=== PATIENT | female | born 1985 | race Caucasian/White ===

== ENCOUNTER 2025-05-26 18:21 | Inpatient (IN) | payer BC, SELFPAY ==
--- NOTE | ~2025-05-26 | XR_ITS ---
XR chest 1V portable Ordering provider: Angel Simpson MD History: 40 years Female with . pre-op . Comparison: None. FINDINGS: MEDIASTINUM: The cardiac silhouette is not enlarged. LUNGS: No infiltrates, effusions or pneumothorax. OTHER: No free air under the diaphragm. IMPRESSION: No acute cardiopulmonary pathology. Reviewed, dictated and finalized at location A.
--- NOTE | ~2025-05-26 | XR_ITS ---
XR foot RT min 3V Ordering provider: Angel Simpson MD History: . Foot lac, 2/3/4 toe pain . Comparison: None. FINDINGS: BONES: No definite acute fracture or dislocation. Lucency seen in the distal metaphysis of the proxim al phalanx of the second toe which may be a fracture. Follow-up advised. JOINT SPACES: Narrowing of the proximal and distal interphalangeal joints. No tarsal coalition. SOFT TISSUES: Normal. Ossification of the insertion of the tendo Achilles. IMPRESSION: Lucency in the distal metaphysis of the proximal phalanx of the second toe which may be a fracture. F ollow-up advised. Polyarticular osteoarthritic changes. Reviewed, dictated and finalized at location A. IMPRESSION: Lucency in the distal metaphysis of the proximal phalanx of the second toe whic h may be a fracture. Follow-up advised. Polyarticular osteoarthritic changes.
[2025-05-26 18:23] VITALS: BP 137/96; PULSE 115; RESP 16; TEMP 36.6; O2SAT 99
[2025-05-26 20:39] VITALS: BP 142/108; PULSE 105; RESP 18; O2SAT 96
--- OUTSIDE RECORDS SUMMARY | 2025-05-26 20:57 | XMS_ITS | Data Portability ---
Author Organization [facility] , [facility] Address [address] [place] [address] Assessment Encounter Date Assessment Date Assessment LastModified by Organization Details LastModified Time 02/11/2022 02/11/2022 Return in 1 year for annual exam [email or web address] Not available 02/11/2022 21:39:15 04/14/2023 04/14/2023 f/u 1 yr for annual exam [email or web address] Not available 04/14/2023 21:25:40 Plan of Treatment Reminders Order Date Submit Date Provider Last Modified By Organization Details Last Modified Time Details Appointments None recorded. Lab HPV E6+E7 mRNA, qualitative PCR, cervix 2024 025 [employer], [address] [place], [address], 5 15:10:25 pap, LB 2024 025 [employer] [facility], [address] [place], [address], 5 15:53:18 HPV E6+E7 mRNA, qualitative PCR, cervix 2021 022 [employer], [address] [place], [address], 2 17:44:17 pap, LB 2021 022 [email or web address] [facility], [address] [place], [address], 17:44:17 Referral None recorded. Procedures None recorded. Surgeries None recorded. Imaging None recorded. Medication Orders None recorded. Patient TargetsNo targets recorded. Patient Instructions Encounter Date Encounter Id Patient Instructions Last Modified By Organization Details Last Modified Time 04/05/2024 [id number] Patient Health Questionnaire-9* [email or web address] Not available 04/12/2024 09:55:30 body mass index: care instructions [email or web address] Not available 04/05/2024 10:55:02 learning about control [email or web address] Not available 04/05/2024 10:55:02 04/06/2025 [id number] body mass index: care instructions [email or web address] Not available 04/06/2025 11:40:41 learning about control [email or web address] Not available 04/06/2025 11:40:41 Reason for Referral None Reported. Results Created Date Observation Date Name Description Value Unit Range Abnormal Flag Note LastModifiedBy Organization Detail LastModifiedTime 02/12/2002/13/2022 HPV HIGH RISK HPV high risk Negati ve negati ve The HPV High Risk assay is inten ded for use as co-te sting with cytol ogy and not as a subst itute for regul ar cervi sherrell cytol ogy scree trung. This assay is not inten ded for use as a scree trung devic e for women under age 30 with weston l cervi sherrell cytol ogy. Not Available [address], [address], 02/13/2022 16:19:03 02/12/20 22 02/14/2022 THINP REP TIS PAP clinical information: normal Infor matio n not provi ded Not Available [facility] [address] [place], [address], 02/14/2022 21:27:34 02/12/20 22 02/14/2022 THINP REP TIS PAP LMP: normal INFOR MATIO N NOT PROVI DED Not Available [facility] [address] [place], [address], 02/14/2022 21:27:34 02/12/20 22 02/14/2022 THINP REP TIS PAP prev. Pap: normal INFOR MATIO N NOT PROVI DED Not Available [address], [address], 02/14/2022 21:27:34 02/12/20 22 02/14/2022 THINP REP TIS PAP prev. BX: normal INFOR MATIO N NOT PROVI DED Not Available [address], [address], 02/14/2022 21:27:34 02/12/20 22 02/14/2022 THINP REP TIS PAP source: normal Cervi x Not Available [address], [address], 02/14/2022 21:27:34 02/12/20 22 02/14/2022 THINP REP TIS PAP statement of adequacy: normal Satis facto ry for evalu ation . Endoc ervic al/tr ansfo rmati on zone compo nent prese nt. Age and/o r menst rual statu s not provi ded Not Available [address], [address], 02/14/2022 21:27:34 02/12/20 22 02/14/2022 THINP REP TIS PAP interpretati on/result: normal Negat eileen for intra epith elial cristel marie or jase tomlin . Not Available [address], [address], 02/14/2022 21:27:34 02/12/20 22 02/14/2022 THINP REP TIS PAP comment: normal This Pap test has been evalu ated with compu ter brittany leidy [employer] ology . Not Available [address], [address], 02/14/2022 21:27:34 02/12/20 22 02/14/2022 THINP REP TIS PAP cytotechnolo gist: normal BES, CT( CP) CT scree trung locat ion: [facility] [place] [address] [place] [address] Not Available [facility] [place] [address] [place], [address], 02/14/2022 21:27:34 02/12/20 22 02/14/2022 THINP REP TIS PAP comment EXPLA NATOR Y NOTE: The Pap is a scree trung test for cervi sherrell cance r. It is not a diagn ostic test and is subje ct to false negat eileen and false posit eileen resul ts. It is most relia ble when a satis facto ry sampl e, regul jyoti obtai marky, is submi tted with relev ant clini sherrell findi ngs and histo ry, and when the Pap resul t is evalu ated along with histo vicente and curre nt clini sherrell infor matio n. Not Available [facility] [place] [address] [address], [place], [address], 02/14/2022 21:27:34 04/06/2004/07/2025 HPV HIGH RISK HPV high risk Negati ve negati ve normal The HPV High Risk assay is inten ded for use as co-te sting with cytol ogy and not as a subst itute for regul ar cervi sherrell cytol ogy scree trung. This assay is not inten ded for use as a scree trung devic e for women under age 30 with weston l cervi sherrell cytol ogy. Not Available [facility] [address] [place], [address], 04/07/2025 15:10:25 04/06/2004/13/2025 THINP REP TIS PAP clinical information: normal None given Not Available [facility] [place] [address] [place], [address], 04/13/2025 15:53:18 04/06/20 25 04/13/2025 THINP REP TIS PAP LMP: normal 01/10 Not Available [place] [address] [place], [address], 04/13/2025 15:53:18 04/06/2004/13/2025 THINP REP TIS PAP prev. Pap: normal 02/11 Not Available [place] [address] [place], [address], 04/13/2025 15:53:18 04/06/20 25 04/13/2025 THINP REP TIS PAP prev. BX: normal NONE GIVEN Not Available [address] [place], [address], 04/13/2025 15:53:18 04/06/2004/13/2025 THINP REP TIS PAP source: normal Cervi x, Endoc ervix Not Available [address], [address], 04/13/2025 15:53:18 04/06/2004/13/2025 THINP REP TIS PAP statement of adequacy: normal Satis facto ry for evalu ation . Endoc ervic al/tr ansfo rmati on zone compo nent prese nt. Not Available [address] [place], [address], 04/13/2025 15:53:18 04/06/2004/13/2025 THINP REP TIS PAP interpretati on/result: normal Cytol ogy Resul ts: Negat eileen for intra epith elial lesio n or jase tomlin . Not Available [place] [address] [place], [address], 04/13/2025 15:53:18 04/06/2004/13/2025 THINP REP TIS PAP comment: normal This Pap test has been evalu ated with compu ter brittany leidy [employer] o[employer]y . Not Available [address] [place], [address], 04/13/2025 15:53:18 04/06/20 25 04/13/2025 THINP REP TIS PAP cytotechnolo gist: normal GERI, CT( CP) CT scree trung locat ion: [facility] [address] [place] [address] Not Available [facility] [address] [address], [place], [address], 04/13/2025 15:53:18 04/06/20 25 04/13/2025 THINP REP TIS PAP comment EXPLA NATOR Y NOTE: The Pap is a scree trung test for cervi sherrell cance r. It is not a diagn ostic test and is subje ct to false negat eileen and false posit eileen resul ts. It is most relia ble when a satis facto ry sampl e, regul jyoti obtai marky, is submi tted with relev ant clini sherrell findi ngs and histo ry, and when the Pap resul t is evalu ated along with histo vicente and curre nt clini sherrell infor matio n. Not Available [facility] [address] [address], [place], [address], 04/13/2025 15:53:18 Result Notes None recorded. Problems Name Problem SNOMED Code Status Onset Date Resolution Date Notes Provider Name and Address Organization Details Recorded Time Sampling of vagina for Papanico laou smear Active 2018 Encounte r for gynecolo gical examinat ion (general ) (routine ) without abnormal findings ; Severity : Moderate Progress : Stable Added By: Nilam Grullon Add to Current Problems : YES ProblemS tatus: Current Not Available [facility] 04:48:31 Surgical follow-u p - normal [id number] Completed 201607/29/2018 Follow-u p exam followin g surgery; Location : None Severity : Moderate Progress : Stable Added By: Cindy Juarez Add to Current Problems : YES ProblemS tatus: Resolve Not Available [facility] 04:48:32 Vaginola bial hernia Completed 201610/18/2017 Other specifie d noninfla mmatory disorder s of vagina; Progress : Stable Added By: Cindy Juarez Add to Current Problems : NO ProblemS tatus: Resolve Vaginal Discharg e; Location : None Progress : Stable Added By: Cindy Juarez Add to Current Problems : YES ProblemS tatus: Resolve Not Available [facility] 2 20:47:40 Irregula r periods [id number] Completed 201607/01/2018 Other specifie d irregula r menstrua tion; Progress : Stable Added By: Cindy Juarez Add to Current Problems : NO ProblemS tatus: Resolve Not Available [facility] 2 20:47:39 Finding of regulari ty of menstrua l cycle Completed 201607/01/2018 Irregula r menstrua tion, unspecif ied; Progress : Stable Added By: Cindy Juarez Add to Current Problems : NO ProblemS tatus: Resolve Not Available [facility] [address] 20:47:[address] Concept Completed 201607/29/2018 Encounte r for follow-u p examinat ion after complete d treatmen t for conditio ns other than malignan t neoplasm ; Progress : Stable Added By: Cindy Juarez Add to Current Problems : NO ProblemS tatus: Resolve Not Available [facility] 2 20:47:39 Uses combined oral contrace ption [id number] Completed 201604/29/2018 Encounte r for surveill ance of contrace ptive pills; Progress : Stable Added By: Vikki Echols Add to Current Problems : NO ProblemS tatus: Resolve Not Available [facility] 2 20:47:40 Menorrha nellie [id number] Completed 201608/03/2017 Menorrha nellie; Location : None Progress : Stable Added By: Myles Nguyen Add to Current Problems : NO ProblemS tatus: Resolve Menorrha nellie; Progress : Stable Added By: Magaly Bay Add to Current Problems : NO ProblemS tatus: Resolve; Start Date : 11/30/19 15 Not Available [facility] 2 20:47:39 Screenin g for malignan t neoplasm of cervix Completed 201811/08/2019 Encounte r for screenin g for malignan t neoplasm of cervix; Progress : Stable Added By: Cindy Juarez Add to Current Problems : NO ProblemS tatus: Resolve Not Available [facility] 2 20:47:39 Hyperten sive disorder 22097846 Active 2023 Michelle Hilliard null, [facility] 4 09:55:51 Notes:Follow-up exam followi ng surgery (V67.09) ; OnsetDate: 10/27/2017; ResolvedDate: 07/29/2018; Progress: Stable Added By: Cindy Juarez Add to Current Problems: NO ProblemStatus: Resolve Routine follow-up for oral contraceptive prescription (V25.41) ; OnsetDate: 07/28/2017; ResolvedDate: 04/29/2018; Progress: Stable Added By: Vikki Echols Add to Current Problems: NO ProblemStatus: Resolve Problem Notes None recorded. Procedures Surgical History Date Name Laterality Status Provider Name and Address Organization Details Recorded Time 04/06/20 25 Date [facility] 16:08:24 laparoscopic cholecystectomy completed [facility] 02/08/2022 12:31:03 Hysteroscopy ablation completed [facility] 02/08/2022 12:31:24 ligation of bilateral fallopian tubes completed [facility] 02/08/2022 12:32:11 Imaging Results None recorded. Procedure Notes None recorded. Medical Equipment None Reported. Allergies Allergen ID Allergen Name Allergen Category Reaction Reaction Severity Criticality Documentation Date Start Date Code Code System Note Provider Name and Address Organization Details Recorded Time 022972 Ceclor medicatio n Not available Not available Not available 09/06/20212014 5 RxNorm Sever ity: Moder ate; Not Available [facility] 01:17:42 Medications Name Sig Start Date Stop Date Status Note LastModified by Organization Details LastModified Time amantadin e HCl 100 mg tablet TAKE ONE TABLET TWICE DAILY 04/14 completed Not Available Not Available Not Available cyclobenz aprine 10 mg tablet Take 1 tablet (10 mg) by mouth 3 times daily as needed active Not Available Not Available No t Available doxycycli ne hyclate 100 mg capsule Take 1 capsule (100 mg) by mouth 2 times daily for 10 days 04/06 completed Not Available Not Available Not Available azithromy maxi 250 mg tablet Take 2 tabs (500 mg) by mouth today, than 1 daily for 4 days. 04/05 completed Not Available Not Available Not Available methylphe nidate 10 mg tablet TAKE ONE TABLET BY MOUTH EVERY MORNING AND AT NOON 04/14 completed Not Available Not Available Not Available valacyclo vir 1 gram tablet Take 1 tablet (1,000 mg) by mouth 3 times daily for 7 days 04/06 completed Not Available Not Available Not Available promethaz ine 12.5 mg tablet Take 1 tablet (12.5 mg total) by mouth every 6 (six) hours as needed for nausea or vomiting active Not Available Not Available No t Available prednison e 20 mg tablet Take 1 tablet (20 mg) by mouth 2 times daily for 5 days active Not Available Not Available No t Available topiramat e 25 mg tablet TAKE THREE TABLETS BY MOUTH TWICE DAILY 04/14 completed Not Available Not Available Not Available sulfameth oxazole 800 mg-trimet hoprim 160 mg tablet Take 1 tablet by mouth 2 times daily for 5 days 04/06 completed Not Available Not Available Not Available amantadin e HCl 100 mg capsule TAKE ONE CAPSULE BY MOUTH THREE TIMES DAILY 04/05 completed Not Available Not Available Not Available baclofen 20 mg tablet TAKE ONE-HALF TABLET BY MOUTH TWICE DAILY active Not Available Not Available No t Available ofloxacin 0.3 % ear drops Place FIVE DROPS into BOTH ears daily FOR SEVEN DAYS active Not Available Not Available No t Available metoclopr amide 5 mg tablet TAKE ONE TABLET BY MOUTH THREE TIMES DAILY NEEDED FOR NAUSEA AND VOMITING active Not Available Not Available No t Available topiramat e 25 mg sprinkle capsule 04/14 completed Topirama te 25 mg oral Capsule, Sprinkle RxNorm: 420443 Allow Substitu tion: True Refill Denied: No Refill DateOccu rred: 09/29/20 17 Edited by: Dara [facility] ) on 01/10/20 21 Stopped by: Dara [facility] ) on Not Available Not Available Not Available meclizine 25 mg tablet Take 1 tablet (25 mg) by mouth 3 times daily as needed active Not Available Not Available No t Available amlodipin e 10 mg tablet TAKE ONE TABLET EVERY DAY 04/06 completed Not Available Not Available Not Available pantopraz ole 40 mg tablet,de layed release Take 1 tablet by mouth once a day before breakfas t active Not Available Not Available No t Available lisinopri l 10 mg tablet Take 1 tablet (10 mg) by mouth daily active Not Available Not Available No t Available metoprolo l succinate ER 25 mg tablet,ex tended release 24 hr TAKE ONE TABLET BY MOUTH EVERY DAY active Not Available Not Available No t Available ibuprofen 600 mg tablet 1 po Q6 hours prn 12/12 completed Ibuprofe n 600mg Tablet Allow Substitu tion: True Refill Denied: No Not Available Not Available Not Available levofloxa maxi 750 mg tablet Take 1 tablet (750 mg) by mouth daily for 10 days active Not Available Not Available No t Available ondansetr on 4 mg disintegr ating tablet DISSOLVE ONE TABLET BY MOUTH THREE TIMES DAILY NEEDED 04/06 completed Not Available Not Available Not Available amoxicill in 875 mg-potass ium clavulana te 125 mg tablet Take 1 tablet by mouth 2 times daily for 10 days 04/06 completed Not Available Not Available Not Available modafinil 100 mg tablet Take 2 tablets (200 mg) by mouth daily active Not Available Not Available No t Available Ortho Micronor 0.35 mg tablet 1 tablet daily 08/29 completed Micronor 0.35mg Tablet RxNorm: 926680 Allow Substitu tion: True Refill Denied: No Not Available Not Available Not Available escitalop kash 10 mg tablet Take 1 tablet (10 mg total) by mouth daily 04/05 completed Not Available Not Available Not Available Sprintec (28) 0.25 mg-0.035 mg tablet 1 tab po daily 07/28 completed Sprintec 35mcg/0. 25mg Tablet RxNorm: 528527 Allow Substitu tion: True Refill Denied: No Not Available Not Available Not Available cyclobenz aprine 5 mg tablet TAKE ONE TABLET BY MOUTH TWICE DAILY NEEDED FOR MUSCLE SPASMS 04/05 completed Not Available Not Available Not Available ciproflox acin 0.3 %-dexamet hasone 0.1 % ear drops,sarah pension Place 4 drops into both ears 2 times daily for 7 days 04/06 completed Not Available Not Available Not Available nitrofura ntoin monohydra te/macroc rystals 100 mg capsule Take 1 capsule (100 mg total) by mouth 2 (two) times a day for 7 days 04/14 completed Not Available Not Available Not Available duloxetin e 30 mg capsule,d elayed release Take 1 capsule (30 mg) by mouth 2 times daily active Not Available Not Available No t Available lactulose 10 gram/15 mL oral solution Drink 30 ml by mouth twice a day active Not Available Not Available No t Available metronida zole 1 % topical gel apply a thin layer to face daily. 04/06 completed Not Available Not Available Not Available levocetir izine 5 mg tablet Take 1 tablet (5 mg total) by mouth every evening 04/05 completed Not Available Not Available Not Available Copaxone 40 mg/mL subcutane ous syringe Inject 40 mg subcutan eously 3 times a week at least 48 hours apart. 01/10 completed Copaxone 40 mg/mL subcutan eous Syringe RxNorm: [id number] Allow Substitu tion: True Refill Denied: No Refill DateOccu rred: 12/28/19 19 [facility] on 01/10/20 [facility] on 01/10/20 21 Not Available Not Available Not Available semagluti de active Not Available Not Available Not Available Vumerity 231 mg capsule,d elayed release take 1 capsule (231 mg) by oral route 2 times per day active Not Available Not Available No t Available Vitals Date Recorded Body height Body mass index (BMI) Body weight Body temperature Systolic And Diastolic Provider Name and Address Organization Details Last Updated DateTime 02/11/2022 160.02 cm 31.2 kg/m2 19358.2 6 g 97.8 [degF] 128/76 mm[Hg] [facility] 12:01:55 Date Recorded Body height Body mass index (BMI) Body weight Heart rate Systolic And Diastolic Provider Name and Address Organization Details Last Updated DateTime 04/05/2024 160.02 cm 38.4 kg/m2 15037.54 g 76 /min 116/83 mm[Hg] [facility] 04/05/2024 09:52:38 Date Recorded Body height Body mass index (BMI) Body weight Heart rate Systolic And Diastolic Provider Name and Address Organization Details Last Updated DateTime 04/06/2025 162.56 cm 39 kg/m2 264309.4 7 g 78 /min 131/98 mm[Hg] [facility] 04/06/2025 10:35:15 Date Recorded Body height Body mass index (BMI) Body weight Body temperature Systolic And Diastolic Provider Name and Address Organization Details Last Updated DateTime 04/14/2023 160.02 cm 36.7 kg/m2 38334.6 2 g 98 [degF] 126/82 mm[Hg] Penny Moore [place] [email or web address] 12:09:50 Social History Question Answer Notes LastModified by Organizat ion Details LastModified Time Tobacco Smoking Status Never Smoker [email or web address] [email or web address] 02/08/2022 12:33:06 Are You Blind Or Do You Have Difficulty Seeing? No [email or web address] Information not available 04/05/2024 Are You Deaf Or Do You Have Serious Difficulty Hearing? No [email or web address] Information not available 04/05/2024 What Type Of Diet Are You Following? REGULAR Information not available 02/11/2022 Which Illicit Or Recreational Drugs Have You Used? Marijuana Information not available 02/08/2022 How Many Children Do You Have? 3 Information not available 02/08/2022 Are There Any Occupational Health Risks Where You Work? [employer] [place] [email or web address] Information not available 04/05/2024 What Is Your Relationship Status? Information not available 02/08/2022 Are You Sexually Active? Yes Information not available 02/08/2022 What Types Of Sporting Activities Do You Participate In? Walking [email or web address] Information not available 04/05/2024 Have You Used IV Drugs? No Information not available 02/08/2022 Sex: Unknown Functional Status Question Answer Note LastModified by Organizat ion Details LastModified Time Do you use any illicit or recreational drugs? Yes Information not available 02/08/2022 Do you or have you ever used any other forms of tobacco or nicotine? No Information not available 02/08/2022 What is your level of alcohol consumption? Occasional [email or web address] Information not available 02/11/2022 Are you currently employed? Yes Information not available 04/05/2024 Do you or have you ever used e-cigarettes or vape? Never used electronic cigarettes [email or web address] Information not available 02/11/2022 What is your exercise level? Occasional [email or web address] Information not available 04/14/2023 Mental Status None recorded. Family History Relationship Description Onset Age of this Age Resolved Age Notes LastModified by Organization Details LastModified Time Father No current problems or disability Not available 02/08 12:30:47 Father Hypertensive disorder [email or web address] Not available 2021 11:56:58 Mother No current problems or disability Not available 02/08 12:30:47 Mother Hypertensive disorder [email or web address] Not available 2021 11:56:58 Medical History Condition Response Other Cancer N High Blood Pressure N Colon Cancer N Cytomegalovirus N Hyperthyroidism N Breast Cancer N Herpes (HSV) N MRSA N Blood Transfusion N Lung Cancer N Hypothyroidism N Depression N Incontinence N Panic Attacks N Neurological Disorder N Deep Vein Thrombosis N Anxiety Disorder N Autoimmune disease N Arthritis N Tuberculosis/Positive PPD N Shingles N Polycystic Ovarian Syndrome N Cervical Cancer N Hematuria N Chlamydia N Varicosities N Stroke N Crohn's Disease N Seasonal allergies N Alzheimer's/Dementia N COPD/Emphysema N HPV/Genital Warts N Endometriosis N IBS (Irritable Bowel Syndrome) N History of Abnormal Pap N High Cholesterol N Liver Disease N Fibromyalgia N Kidney Infection N Ulcer N Kidney Disease N HIV N Gallbladder disease N Von Willebrand disease N Sickle Cell Disease/Trait N ADD/ADHD N Eating Disorder N Diabetes Mellitus (non-insulin dependent ) N Anemia N Ovarian Problems N Multiple Sclerosis Y Gonorrhea N Frequent Urinary Tract infections N Osteopenia N Headaches/migraines N GERD (reflux) N Ovarian Cancer N Diabetes (insulin dependent) N Seizures/Epilepsy N Fibroids N Asthma N Heart Attack N Endometrial Cancer N Lupus N Rubella N Blood Clotting Disorder N Bipolar Disorder N Diabetes Mellitus (during ) N Ulcerative Colitis N Hepatitis N Heart Disease N Pulmonary Embolism N RPR N Chicken Pox N Osteoporosis N Gynecological History Statement/Question Response Date of last HPV 04/06/2025 Date of LMP 01/10/2014 Most Recent Bone Density Date of Last Pap Smear 04/06/2025 Most Recent Mammogram Current Control Method Tubal Ligat ion Age at Menarche 10 Obstetrics History GPAL:G 3 P 3 0 0 3 Type Value Multiple Births 0 Full Term 3 Induced 0 Spontaneous 0 Premature 0 Living 3 Ectopics 0 Total 3 Past Encounters Encounter ID Performer Location Encounter Start Date Encounter Closed Date Diagnosis/Indication Diagnosis SNOMED-CT Code Diagnosis ICD10 Code Diagnosis Note [id number] MD CARIN Kaplan[facility]aina [facility]ricia[facility] [address] [facility] [address] [place] [address] 02/11/2022 11:55:03 02/12/2022 12:44:02 Gynecologic examination 58084448 Z01.419 Screening for malignant neoplasm of cervix 791715453 Z12.4 [id number] MD STACIE KaplanShaina [place] [address] [facility] [address] [place] [address] 04/14/2023 11:48:39 04/14/2023 14:13:34 Gynecologic examination 48041167 Z01.419 Depression screening 171 777709 Z13.31 see scoring. [id number] [facility]les Nguyen [facility] [address] [facility] [address] [place] [address] 04/05/2024 09:21:06 04/05/2024 11:05:17 Gynecologic examination 23739960 Z01.419 Screening for malignant neoplasm of cervix 791322291 Z12.4 last pap 02/11/2022 Surveillan ce of contraception 926320570 Z30.40 Depression screening 171 668481 Z13.31 See Intake Screening - PHQ score 5 [id number] MD STACIE [facility] [address] [facility] [address] [place] [address] 04/06/2025 10:27:03 04/06/2025 12:27:45 Gynecologic examination 19431099 Z01.419 Screening for malignant neoplasm of cervix [id number] Z12.4 last pap 02/11/2022 Surveillan ce of contraception [id number] Z30.40 Health Concerns Section Related Observation LastModified by Organization Detai ls LastModified Time None Recorded Concern Status LastModified by Organization Details LastModified Time None Recorded Advance Directives Directive None Recorded Payers Insurance Date Sequence Insurance Name Policy Number Policy Dale Covered Member ID Dale Member ID Guarantor Name 04/06/2025 1 [id number] [id number] Priscilla Metcalf [id number] Priscilla Metcalf Notes Date Note Type Note Provider Name and Address Organization Details Recorded Time 02/11/2022 text/html Annual GYNReport ed bypatient.History: no gynecologic complaints Menstrual cycle:No Cycles due to endometrial ablation. Urinary symptoms:No hematuria; No incontinence Vulva:No genital lesion Vagina:Normal vaginal discharge Breast:No breast pain; No breast lump; No nipple discharge Current Contraception:Tuba l ligation Sexual complaints:No sexual complaints; No pain during intercourse; Normal libido Menopausal Symptoms:No menopausal symptoms; Normal vaginal lubrication Pt has no concerns today. Myles Nguyen MD [address] [place] [address], [phone], [employer] IV 02/11/2022 21:39:38 04/14/2023 text/html Annual GYNReport ed bypatient.History: no gynecologic complaints; no change in interval history Menstrual cycle:No periods due to ablation in 2013 Urinary symptoms:No hematuria; No incontinence Vulva:No genital lesion Vagina:Normal vaginal discharge Breast:No breast pain Current Contraception:Sati sfied with current contraception; Tubal ligation Sexual complaints:No sexual complaints; No pain during intercourse Psychological symptoms:Depressio n;Anxiety Annual without pap! Scored a 17 on depression screening. Myles Nguyen MD [facility] [place], [address], [facility] [email or web address] IV 04/14/2023 21:26:20 04/05/2024 text/html Annual GYNReport ed bypatient.Urinary symptoms:No incontinence Vulva:No genital lesion Vagina:Normal vaginal discharge Breast:No breast pain; No breast lump; No nipple discharge Priscilla 39 y/o presents for a well woman exam. Patient states she has no concerns. Last pap 02/11/22 Myles Nguyen MD [facility] [place], [address], [facility] [employer] IV 04/05/2024 10:55:16 04/06/2025 text/html Annual GYNReport ed bypatient.Urinary symptoms:Incontine nce; SEEING A UROLOGIST AND NEUROLOIST FOR HER MS WHICH IS THOUGHT TO BE THE SOURCE OF HER VOIDING PROBLEMS. Vulva:No genital lesion Vagina:Normal vaginal discharge Breast:No breast pain; No breast lump; No nipple discharge Psychological symptoms:Anxiety; ON MEDSNotes:Consider ing having breast reduction. Priscilla 40 y/o presents for a well women exam. Last pap 02/11/22 Myles Nguyen MD [address] [facility], [place], [address], [facility] [employer] IV 04/06/2025 11:40:58 OBGyn Episode No OBEpisode recorded.
--- OUTSIDE RECORDS SUMMARY | 2025-05-26 20:57 | XMS_ITS | Encounter Summary ---
Author Organization [facility] Address [address] [place] [address] Care Team Providers Care Steel Handler Name Role Phone Roberto Rubin MD Primary Care Provider Encounter Details Date Type Department Care Team (Late st Contact Info) Description 06/15/2017 Orders Only [facility] Internal Medicine and Pediatrics [address] [place] [phone] Chas Marvin MD [address] [place] [phone] Social History Tobacco Use Types Packs/Day Years Used Date Smoking Tobacco: Never Assessed Comments Unknown Sex and Gender Information Value Date Recorded Sex Assigned at Not on file Legal Sex Female 9:43 PM CDT Gender Identity Not on file Sexual Orientation Not on file documented as of this encounter Plan of Treatment Not on file documented as of this encounter Visit Diagnoses Not on filedocumented in this encounter Additional Health Concerns Infection Onset Date Last Indicated Resolved Time R/O COVID-19 12/05/2020 12/05/2020 12/05/2020 1:45 PM 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
--- OUTSIDE RECORDS SUMMARY | 2025-05-26 20:57 | XMS_ITS | Encounter Summary ---
Author Organization [facility] Address [facility] [place] [address] Care Team Providers Care Hospice Executive Director Name Role Phone Roberto Rubin MD Primary Care Provider [phone] Reason for Visit * Reason Comments Med Refill Encounter Details Date Type Department Care Team (Late st Contact Info) Description 09/04/2019 Refill [facility] Family Medicine [address] [place] [phone] Mike Epps MD Essential hypertension Social History Tobacco Use Types Packs/Day Years Used Date Smoking Tobacco: Never Smokeless Tobacco: Never Alcohol Use Standard Drinks/Week Comments Yes 0 (1 standard drink = 0.6 oz pur e alcohol) occasionally Comments Unknown Sex and Gender Information Value Date Recorded Sex Assigned at Not on file Legal Sex Female 9:43 PM CDT Gender Identity Not on file Sexual Orientation Not on file documented as of this encounter Plan of Treatment Not on file documented as of this encounter Visit Diagnoses Diagnosis Essential hypertension Unspecified essential hypertension documented in this encounter Additional Health Concerns Infection Onset Date Last Indicated Resolved Time R/O COVID-19 12/05/2020 12/05/2020 12/05/2020 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
--- OUTSIDE RECORDS SUMMARY | 2025-05-26 20:57 | XMS_ITS | Encounter Summary ---
Author Organization [facility] Address [facility] [place] [address] Care Team Providers Care Warehouse Freight Handler Name Role Phone Roberto Rubin MD Primary Care Provider [phone] Reason for Visit * Reason Comments Med Refill Encounter Details Date Type Department Care Team (Late st Contact Info) Description 08/20/2018 Refill [facility] Family Medicine [address] [place] [phone] Mike Epps MD Essential hypertension Social History [...] R/O COVID-19 12/05/2020 12/05/2020 12/05/2020 1:45 PM ELECTRIC METER INSPECTOR R/O COVID-19 01/07/2022 01/07/2022 01/08/2022 4:24 AM ELECTRIC METER INSPECTOR R/O COVID-19 06/10/2022 06/10/2022 06/11/2022 3:44 PM CDT documented as of this encounter Care Teams Warehouse Freight Handler Relationship Specialty Start Date End Date Roberto Rubin MD [address] [place] [phone] PCP - General Family Medicine 01/27/24 documented as of this encounter
--- OUTSIDE RECORDS SUMMARY | 2025-05-26 20:57 | XMS_ITS | Encounter Summary ---
Author Organization [facility] Address [address] [place] [address] Care Team Providers Care Founder Chairman And Chief Creative Officer Name Role Phone Roberto Rubin MD Primary Care Provider Reason for Visit * Reason Onset Date Comments Other 05/12/2025 Encounter Details Date Type Department Care Team (Late st Contact Info) Description 05/12/[address] [phone] Roberto Rubin MD [address] [place] [phone] Other Social History Tobacco Use Types Packs/Day Years Used Date Smoking Tobacco: Never Passive Smoke Exposure: Past Smokeless Tobacco: Never Alcohol Use Standard Drinks/Week Comments Not Currently 0 (1 standard drink = 0.6 oz pur e alcohol) Socially [facility] Utilities Answer Date Recorded In the past 12 months has e [employer], gas, oil, or water [employer] threatened to shut off services in your home? No 05/12/2025 Humiliation, Afraid, Rape, and Kick questionnair e Answer Date Recorded Within the last year, have y ou been afraid of your partner or ex-partner? No 05/12/2025 Within the last year, have y ou been humiliated or emotionally abused in other ways by your partner or ex-partner? No Within the last year, have y ou been kicked, hit, slapped, or otherwise physically hurt by your partner or ex-partner? No 05/12/2025 Within the last year, have y ou been raped or forced to have any kind of sexual activity by your partner or ex-partner? No 05/12/2025 Hunger Vital Sign Answer Date Recorded Within the past 12 months, y ou worried that your food would run out before you got the money to buy more. Never true 05/12/20 25 Within the past 12 months, t he food you bought just didn't last and you didn't have money to get more. Never true 05/12/2025 PRAPARE - Transportation Answer Date Re corded In the past 12 months, has l ack of transportation kept you from medical appointments or from getting medications? No 04/17 In the past 12 months, has l ack of transportation kept you from meetings, work, or from getting things needed for daily living? No 05/12/2025 Housing Stability Vital Sign Answer Candelario e Recorded In the last 12 months, was t here a time when you were not able to pay the mortgage or rent on time? No 07/27/2024 In the last 12 months, how many places have you lived? 1 07/27/2024 In the last 12 months, was t here a time when you did not have a steady place to sleep or slept in a fci (including now)? No 07/27/2024 Housing Stability Vital Sign Answer Candelario e Recorded In the last 12 months, was t here a time when you were not able to pay the mortgage or rent on time? No 05/12/2025 Number of Times Moved in the Last Year Not on fi le 05/12/2025 At any time in the past 12 m [facility], were you homeless or living in a fci (including now)? No 05/12/2025 Alcohol Use Answer Date Recorded Frequency of Alcohol Consumption Not on file 04/27/2024 Average Number of Drinks Not on file 024 Frequency of Binge Drinking Not on file 04/16 Alcohol Use Status Not Currently 04/27/2024 Average alcohol consumption Not on file 04/16 Comments No Sex and Gender Information Value Date Recorded Sex Assigned at Female 04/08/2025 7:34 AM CDT Legal Sex Female 3:02 AM [employer] Gender Identity Female 04/08/2025 7:34 AM CDT Sexual Orientation Straight 04/08/2025 7: 34 AM CDT documented as of this encounter Functional Status * Are you deaf or do you have serious difficulty hearing? Answer Date of Assessment Author No 02/09/2024 10:34 AM CDT David Galindo RN * Are you blind or do you have serious difficulty seeing, even when wearing glasses? Answer Date of Assessment Author No 02/09/2024 10:34 AM ZOFIAT David Galindo RN * Do you have serious difficulty walking or climbing stairs? Answer Date of Assessment Author No 02/09/2024 10:34 AM ZOFIAT David Galindo RN * Do you have difficulty dressing or bathing? Answer Date of Assessment Author No 02/09/2024 10:34 AM ZOFIAT David Galindo RN * Because of a physical, mental, or emotional condition, do you have difficulty doing errands alone such as visiting a doctor's office or shopping? Answer Date of Assessment Author No 02/09/2024 10:34 AM ZOFIAT David Galindo RN documented as of this encounter Mental Status * Because of a physical, mental, or emotional condition, do you have serious difficulty concentrating, remembering, or making decisions? Answer Entry Date Author No 02/09/2024 10:34 AM David Keith RN documented in this encounter Miscellaneous Notes * Telephone Encounter - Mariposa Sifuentes CNA - 05/12/2025 3:33 PM CDT FYI: Pt called and left message on machine at 8:32am today stating she needs to talk with nurse about her B/P. I am just now getting to taking off the messages and it looks like she had already went to the ER for the issues. documented in this encounter Plan of Treatment Upcoming Encounters Date Type Department Care Team (Late st Contact Info) Description 06/21/2025 1:15 PM CDT Office Visit [address] [phone] Roberto Rubin MD [address] [place] [phone] 08/01/2025 8:30 AM CDT Office Visit [facility] [address] [place] [phone] Roberto Rubin MD [address] [place] [phone] 04/11/2026 1:15 PM CDT Office Visit [facility] [address] [place] [phone] Rose Rodriguez MD [address] [place] [phone] documented as of this encounter Visit Diagnoses Not on filedocumented in this encounter Care Teams Founder Chairman And Chief Creative Officer Relationship Specialty Start Date End Date Roberto Rubin MD [address] [place] [phone] PCP - General Family Medicine 09/24/23 documented as of this encounter
--- OUTSIDE RECORDS SUMMARY | 2025-05-26 20:57 | XMS_ITS | Clinical Summary ---
Author Organization [facility] Address [address] [place] [id number] Care Team Providers Care Gear Straightener Name Role Phone Roberto Rubin MD Primary Care Provider Allergies Active Allergy Reactions Criticality Noted Date Comments Cefaclor Rash 11/14/2019 Medications baclofen (LIORESAL) 20 MG tablet Take 1.5 tablets (30 mg) by mouth 2 times daily Active pantoprazole (PROTONIX) 40 MG tablet Take 1 tablet by mouth once a day before breakfast 02/11/20 24 Active ondansetron (ZOFRAN ODT) 4 MG disintegrating tablet Take 1 tablet (4 mg) by mouth every 8 (eight) hours if needed Active ofatumumab (KESIMPTA) 20 MG/0.4ML subcutaneous soln auto-injector Inject Active DULoxetine (CYMBALTA) 30 MG capsule Take 1 capsule (30 mg) by mouth 2 times daily 180 capsule 1 01/03/20 25 2024 Active metoprolol succinate (TOPROL XL) 25 MG XL tablet Take 1 tablet (25 mg) by mouth daily 90 tablet 1 03/28/20 25 2024 Active semaglutide-weigh t management (WEGOVY) 0.25 MG/0.5ML auto-injector Inject 0.5 mL (0.25 mg) into the skin once a week Active lisinopril (ZESTRIL) 10 MG tabletIndications :Hypertension, unspecified type Take 2 tablets (20 mg) by mouth daily for 30 days 60 tablet 05/05/20 25 2024 Active cariprazine HCl (VRAYLAR) 1.5 MG capsule Take 1 capsule (1.5 mg) by mouth daily 30 capsule 5 05/17/20 25 2024 Active lisdexamfetamine (VYVANSE) 20 MG capsuleIndication s:Attention deficit hyperactivity disorder (ADHD), unspecified ADHD type Take 1 capsule (20 mg) by mouth every morning for 30 days 30 capsule 05/17/20 25 2024 Active ciprofloxacin (CIPRO) 500 MG tablet Take 1 tablet (500 mg) by mouth 2 times daily for 10 days 20 tablet 05/22/20 25 2024 Active metroNIDAZOLE (FLAGYL) 500 MG tablet Take 1 tablet (500 mg) by mouth 3 times daily for 10 days 30 tablet 05/22/20 25 2024 Active loperamide (IMODIUM) 2 MG capsuleIndication s:Diarrhea Take 1 capsule (2 mg) by mouth as needed Indications: Diarrhea 1 capsule after each loose bowel movement 20 capsule 05/22/20 25 2024 Active lisinopril (ZESTRIL) 10 MG tabletIndications :Hypertension, unspecified type Take 1 tablet (10 mg) by mouth daily 30 tablet 5 02/07/20 25 2024 Discontinued(Magno rodriguez) modafinil (PROVIGIL) 100 MG tabletIndications :Chronic fatigue, unspecified Take 2 tablets (200 mg) by mouth daily 60 tablet 2 03/23/20 25 2024 Discontinued amoxicillin-clavu lanate (AUGMENTIN) 875-125 MG per tabletIndications :Acute non-recurrent maxillary sinusitis Take 1 tablet by mouth 2 times daily for 7 days 14 tablet 04/28/20 25 2024 ipratropium (ATROVENT) 0.06 % nasal sprayIndications: Acute non-recurrent maxillary sinusitis 2 sprays by Nasal route 3 times daily for 14 days 15 mL 04/28/20 25 2024 amLODIPine (NORVASC) 5 MG tablet Take 1 tablet (5 mg) by mouth daily 30 tablet 5 05/08/20 25 2024 Discontinued Active Problems Problem Noted Date Diagnosed Date Seizure disorder 05/17/2025 Dysuria 04/25/2025 Assessment & Plan (04/25/2025 2:13 PM CDT): Orders: POCT BLADDER SCAN POCT URINALYSIS DIPSTICK (MANUAL) Chronic fatigue 09/30/2024 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 Urinary urgency 07/26/2024 Paresthesia 05/27/2024 Hematuria 02/09/2024 Depression 09/24/2023 Essential hypertension 09/24/2023 Depressed mood 02/13/2023 Intractable chronic migraine without aura 2022 Attention deficit hyperactivity disorder (ADHD) 10/23/2022 Functional neurological symp sanjiv disorder with mixed symptoms 10/23/2022 Dysphagia 02/17/2018 Multiple sclerosis 01/06/2018 Insomnia 01/06/2018 Menorrhagia with irregular cycle 10/13/2017 Encounters Date Type Department Care Team Description 05/23/[address] [phone] Roberto Rubin MD Follow-up (ER visit) 05/22/2025 8:01 AM CDT - 05/22/2025 10:43 AM CDT Emergency [facility] Emergency Department [address] [place] [phone] Darnell Brown MD Colitis (Primary Dx) Discharge Disposition: Home 05/17/2025 3:00 PM CDT Office Visit [address] [phone] Roberto Rubin MD Hypertension, unspecified type (Primary Dx); Multiple sclerosis (HCC); Depression, unspecified depression type; Seizure disorder (HCC); Brain fog; Attention deficit hyperactivity disorder (ADHD), unspecified ADHD type 05/12/2025 9:15 AM CDT Ancillary Procedure [facility] Non-Invasive Cardiology [address] [place] [phone] 05/12/2025 8:59 AM CDT - 05/12/2025 12:36 PM CDT Emergency [facility] Emergency Department [address] [place] [phone] Denzel Gibson MD Elevated blood pressure reading (Primary Dx) Discharge Disposition: Home 05/12/[address] [phone] Roberto Rubin MD Other 05/08/[address] [phone] Roberto Rubin MD Other 05/05/[address] [phone] Roberto Rubin MD Other 04/28/2025 9:00 AM CDT Office Visit [address] [phone] Vikki Ferris DO Acute non-recurrent maxillary sinusitis (Primary Dx) 04/25/2025 1:15 PM CDT Office Visit [facility] Urology [address] [place] [phone] Israel Rios MD Dysuria (Primary Dx); Urinary stream splitting 04/13/2025 2:00 PM CDT Office Visit [facility] Surgical Services [address] [place] [phone] Rose Rodriguez MD 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 (Primary Dx) 04/08/2025 7:30 AM CDT - 04/08/2025 11:59 PM CDT Hospital Encounter [address] [phone] Roberto Rubin MD Multiple sclerosis (HCC) (Primary Dx) Discharge Disposition: Home 04/07/2025 7:18 AM CDT - 04/07/2025 11:59 PM CDT Hospital Encounter [address] [phone] Roberto Rubin MD Multiple sclerosis (HCC) (Primary Dx) Discharge Disposition: Home 04/06/2025 11:46 AM CDT - 04/06/2025 11:59 PM CDT Hospital Encounter [facility] Infusion Center [address] [place] [phone] Roberto Rubin MD Multiple sclerosis (HCC) (Primary Dx) Discharge Disposition: Home 04/06/2025 Orders Only [facility] [address] [place] [phone] Roberto Rubin MD 04/06/[address] [phone] Roberto Rubin MD Other 04/06/[address] [phone] Israel Rios MD Other 04/05/[address] [phone] Israel Rios MD Other 04/04/2025 [facility] [address] [place] [phone] Roberto Rubin MD Other 04/03/2025 1:30 PM CDT Lab/X-Ray [facility] [address] [place] [phone] Roberto Rubin MD Chronic fatigue, unspecified 04/03/[address] [phone] Roberto Rubin MD Md Order 03/28/[address] [phone] Roberto Rubin MD Medication Refill 03/23/[address] [phone] Roberto Rubin MD Medication Refill from Last 3 Months Immunizations Immunization Administration Dates Next Due Covid-19 Moderna Booster Half Dose 04/04/2021 Influenza Quadrivalent, Preservative Free 2019 Influenza Split Virus 09/06/2014 Tdap 03/02/2020 Family History Medical History Relation Name Comments High Blood Pressure Father Shar Pathak High Blood Pressure Mother Sidra Pathak Relation Name Status Comments Father Shar Pathak Mother Sidra Pathak Social History Tobacco Use Types Packs/Day Years Used Date Smoking Tobacco: Never Passive Smoke Exposure: Past Smokeless Tobacco: Never Tobacco Cessation:Counseling Given: Not Answered Alcohol Use Standard Drinks/Week Comments Not Currently 0 (1 standard drink = 0.6 oz pur e alcohol) Socially [facility] Utilities Answer Date Recorded In the past 12 months has e [employer], gas, oil, or water [facility] threatened to shut off services in your home? No 05/22/2025 Humiliation, Afraid, Rape, and Kick questionnair e Answer Date Recorded Within the last year, have y ou been afraid of your partner or ex-partner? No 05/22/2025 Within the last year, have y ou been humiliated or emotionally abused in other ways by your partner or ex-partner? No Within the last year, have y ou been kicked, hit, slapped, or otherwise physically hurt by your partner or ex-partner? No 05/22/2025 Within the last year, have y ou been raped or forced to have any kind of sexual activity by your partner or ex-partner? No 05/22/2025 Hunger Vital Sign Answer Date Recorded Within the past 12 months, y ou worried that your food would run out before you got the money to buy more. Never true 05/22/20 25 Within the past 12 months, t he food you bought just didn't last and you didn't have money to get more. Never true 05/22/2025 PRAPARE - Transportation Answer Date Re corded In the past 12 months, has l ack of transportation kept you from medical appointments or from getting medications? No 05/2025 In the past 12 months, has l ack of transportation kept you from meetings, work, or from getting things needed for daily living? No 05/22/2025 Housing Stability Vital Sign Answer Candelario e [...] place to sleep or slept in a jail (including now)? No 07/27/2024 Housing Stability Vital Sign Answer Candelario e Recorded In the last 12 months, was t here a time when you were not able to pay the mortgage or rent on time? No 05/22/2025 Number of Times Moved in the Last Year Not on fi le 05/22/2025 At any time in the past 12 m [facility], were you homeless or living in a jail (including now)? 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 Gender Identity Female 04/08/2025 7:34 AM CDT Sexual Orientation Straight 04/08/2025 7: 34 AM CDT Last Filed Vital Signs Vital Sign Reading Time Taken Comments Blood Pressure 134/94 05/22/2025 10:37 AM CDT Pulse 80 05/22/2025 10:37 AM CDT Temperature 36.4 C (97.5 F) 05/22/2025 8:07 AM CDT Respiratory Rate 18 05/22/2025 10:37 AM CDT Oxygen Saturation 98% 05/22/2025 10:37 AM CDT Inhaled Oxygen Concentration - - Weight 97.5 kg (215 lb) 05/22/2025 8:07 AM CDT Height 162.6 cm (5' 4) 05/17/2025 2:53 PM CDT Body Mass Index 36.9 05/17/2025 2:53 PM CDT Plan of Treatment Upcoming Encounters Date Type Department Care Team (Late st Contact Info) Description 06/21/2025 1:15 PM CDT Office Visit [address] [phone] Roberto Rubin MD [address] [place] [phone] 08/01/2025 8:30 AM CDT Office Visit [address] [phone] Roberto Rubin MD [address] [place] [phone] 04/11/2026 1:15 PM CDT Office Visit [facility] Surgical Services [address] [place] [phone] Rose Rodriguez MD [address] [place] [phone] Health Maintenance Due Date Last Done Comments HIV Screening 1986 Hepatitis C Screening ages 18 to 79 once 1986 MMR VACCINES (1 of 1 - Standard series) 1987 DEPRESSION SCREENING 1998 Varicella Vaccine (1 of 2 - 13+ 2-dose series) 1999 BMI Above/Below Normal Parameters 2004 HEPATITIS B VACCINES (1 of 3 - 19+ 3-dose series) 2005 CERVICAL CANCER SCREENING 2007 COVID-19 Immunization ( - season) 2024 04/04/2021 Influenza Vaccine 06/16/2025 09/01/2020, 09/06/2014 YEARLY WELLNESS EXAM 04/06/2026 04/06/2025, 04/05/2024, 04/14/2023, Additional history exists ADULT TETANUS 03/02/2030 03/02/2020 Zoster Vaccine (Recombinant Vaccine) (1 of 2) 2036 HEPATITIS A VACCINES Aged Out No long er eligible based on patient's age to complete this topic HIB VACCINES Aged Out No longer eligi ble based on patient's age to complete this topic HPV VACCINES Aged Out No longer eligi ble based on patient's age to complete this topic IPV VACCINES Aged Out No longer eligi ble based on patient's age to complete this topic MENINGOCOCCAL VACCINE Aged Out No brianda coty eligible based on patient's age to complete this topic Meningococcal B Vaccine Aged Out No l onger eligible based on patient's age to complete this topic Pneumococcal Vaccine: Peds to 50 & At-Risk Patients Aged Out No longer eligi ble based on patient's age to complete this topic ROTAVIRUS VACCINES Aged Out No longer eligible based on patient's age to complete this topic Procedures Procedure Name Priority Date/Time Associated Diagnosis Comments CT ABDOMEN PELVIS W CONTRAST STAT 05/22/2025 9:11 AM CDT CLOSTRIDIUM DIFFICILE TOXIN B BY PCR STAT 05/22/2025 8:45 AM CDT COMPREHENSIVE METABOLIC PANEL STAT 05/22/2025 8:33 AM CDT CBC W AUTO DIFF STAT 05/22/2025 8:33 AM CDT TROPONIN Timed 05/12/2025 11:42 AM CDT TROPONIN STAT 05/12/2025 9:57 AM CDT MAGNESIUM STAT 05/12/2025 9:57 AM CDT COMPREHENSIVE METABOLIC PANEL STAT 05/12/2025 9:57 AM CDT CBC W AUTO DIFF STAT 05/12/2025 9:57 AM CDT XR CHEST PORTABLE STAT 05/12/2025 9:5 5 AM CDT EKG STAT 05/12/2025 9:12 AM CDT POCT URINALYSIS DIPSTICK (MANUAL) Routine 04/25/2025 2:11 PM CDT Dysuria POCT BLADDER SCAN Routine 04/25/2025 1:3 2 PM CDT Dysuria CBC W AUTO DIFF Routine 04/03/2025 1:30 PM CDT Chronic fatigue, unspecified COMPREHENSIVE METABOLIC PANEL Routine 04/03/2025 1:30 PM CDT Chronic fatigue, unspecified TSH THIRD GENERATION Routine 04/03/2025 1:30 PM CDT Chronic fatigue, unspecified MAGNESIUM Routine 04/03/2025 1:30 PM CDT Chronic fatigue, unspecified from Last 3 Months Results * CT ABDOMEN PELVIS W CONTRAST (05/22/2025 9:11 AM CDT) Anatomical Region Laterality Modality Abdomen Computed Tomogra phy 05/22/2025 8:50 AM CDT Narrative 05/22/2025 9:35 AM CDT HISTORY: Generalized abdominal pain with diarrhea for 4 days. COMPARISONS: MR Abdomen 08/09/2024 and 02/19/2024. CT Abdomen Pelvis 01/15/2024 and 08/22/2023. CONTRAST: 100 mL of Omnipaque 300. TECHNIQUE: Helical CT images through the abdomen and pelvis after the administration of IV and oral contrast. Sagittal and coronal reformats were created. The reported (DLP) for this examination, based on a 32 cm diameter phantom, is 1079 mGy-cm. Automated exposure control, adjustment of mA and/or kV according to patient size or iterative reconstruction dose optimization techniques were used. FINDINGS: CHEST: Lungs: Clear. No nodule identified. Heart: Normal in size without pericardial effusion. ABDOMEN/PELVIS: Liver/Gallbladder: Benign hemangiomas and small simple cysts again noted in the liver. No suspicious lesion. No acute abnormality. Prior cholecystectomy. Spleen: Normal. Pancreas: Normal. Adrenals: Normal. Kidneys: No solid mass, nephrolithiasis or hydronephrosis. Ureters/Bladder: Normal. Reproductive: Normal. Bowel: Normal appendix. There is wall thickening and increased enhancement within the descending colon and sigmoid colon. Fluid is present within the sigmoid colon. No obstruction, free air or pneumatosis. Lymph nodes: Normal. Vascular: Normal course and caliber. Free fluid: None. BONES/SOFT TISSUES: Bones: No lytic or blastic lesion or acute abnormality. Soft tissues: Normal. IMPRESSION: Wall thickening and increased enhancement within the descending colon and sigmoid colon with fluid in the sigmoid colon. Findings are consistent with infectious/inflammatory colitis. Electronically signed by: Shar Mosqueda MD 05/22/2025 09:35 AM CDT Procedure Note Shar Mosqueda MD - 05/22/2025 HISTORY: Generalized abdominal pain with diarrhea for 4 days. COMPARISONS: MR Abdomen 08/09/2024 and 02/19/2024. CT Abdomen Tpihdn7901/15/2024 and 08/22/2023. CONTRAST: 100 mL of Omnipaque 300. TECHNIQUE: Helical CT images through the abdomen and pelvis after theadministration of IV and oral contrast. Sagittal and coronal reformats were created. The reported(DLP) for this examination, based on a 32 cm diameter phantom, is 1079 mGy-cm. Automatedexposure control, adjustment of mA and/or kV according to patient size or iterativereconstruction dose optimization techniques were used. FINDINGS: CHEST: Lungs: Clear. No nodule identified. Heart: Normal in size without pericardial effusion. ABDOMEN/PELVIS: Liver/Gallbladder: Benign hemangiomas and small simple cysts again notedin the liver. No suspicious lesion. No acute abnormality. Prior cholecystectomy. Spleen: Normal. Pancreas: Normal. Adrenals: Normal. Kidneys: No solid mass, nephrolithiasis or hydronephrosis. Ureters/Bladder: Normal. Reproductive: Normal. Bowel: Normal appendix. There is wall thickening and increased enhancementwithin the descending colon and sigmoid colon. Fluid is present within the sigmoidcolon. No obstruction, free air or pneumatosis. Lymph nodes: Normal. Vascular: Normal course and caliber. Free fluid: None. BONES/SOFT TISSUES: Bones: No lytic or blastic lesion or acute abnormality. Soft tissues: Normal. IMPRESSION: Wall thickening and increased enhancement within the descending colon andsigmoid colon with fluid in the sigmoid colon. Findings are consistent withinfectious/inflammatory colitis. Electronically signed by: Shar Mosqueda MD 05/22/2025 09:35 AM CDT RPWorkstation: [id number] Dranell Brown MD [facility] IM CT ORDERABLE S Final Result * CLOSTRIDIUM DIFFICILE TOXIN B BY PCR (05/22/2025 8:45 AM CDT) C. DIFF SOURCE STOOL [facility] TOXIGENIC C. DIFF NEGATIVE NEGATIVE [facility] [id number] PRESUMPTIVE NEGATIVE [facility] Comment TOXIN PRODUCING C. DIFFICILE DNA SEQUENCES ARE NOT DETECTED. [facility] Stool (Stool) 05/22/2025 8:4 5 AM CDT 05/22/2025 8:46 AM CDT Darnell Brown MD MICROBIOLOGY - [facility] AL ORDERABLES Final Result Performing Organization Address City/State/[facility] de Phone Number [facility] [address] [place] [address] * (ABNORMAL) CBC W AUTO DIFF (05/22/2025 8:33 AM CDT) Only the most recent of3 resultswithin the time period is included. White Blood Cell Count 6.2 4.3 - 10.5 THOUS/uL [facility] Red Blood Cell Count 4.50 3.93 - 5.07 MIL/uL [facility] Hemoglobin 14.1 11.8 - 14.8 GM/DL [facility] Hematocrit 40.6 35.6 - 45.0 % [facility] Mean Corpuscular Volume 90.2 83.5 - 95.9 FL [facility] Mean Corpuscular Hemoglobin 31.3 27.4 - 32.0 PG [facility] Mean Corpuscular Hemoglobin Conc 34.7 31.5 - 34.7 G/DL [facility] Rdwcv 12.9 11.8 - 14.2 % [facility] Rdwsd 42.7 37.2 - 47.8 FL [facility] Platelet Count 343 167 - 402 THOUS/uL [facility] Mean Platelet Volume 9.0 8.8 - 12.0 FL [facility] Differential Type AUTO FE [facility] Neutrophils 62.3 34.0 - 67.9 % [facility] Lymphs 29.9 20.4 - 48.6 % [facility] Monocytes 4.7(L) 5.0 - 11.5 % [facility] Eos 1.8 1.0 - 5.4 % [facility] Basos 1.0 0.2 - 1.3 % [facility] Neutrophils Absolute Count 3.9 2.1 - 6.6 THOUS/uL [facility] Lymphocytes Absolute Count 1.9 1.2 - 3.9 THOUS/uL [facility] Monocytes Absolute Count 0.3 0.3 - 0.8 THOUS/uL [facility] Eosinophils Absolute Count 0.1 0.1 - 0.4 THOUS/uL [facility] Basophils Absolute Count 0.1 0.0 - 0.1 THOUS/uL [facility] Imm Gran 0.3 0.1 - 0.7 % [facility] Abs Imm Gran 0.02 0.0 - 0.1 THOUS/uL [facility] Blood 05/22/2025 8:33 AM CDT 05/22/2025 8:35 AM CDT Darnell Brown MD HEMATOLOGY ORDERABLE S Final Result [facility] [address] [place] [id number] * COMPREHENSIVE METABOLIC PANEL (05/22/2025 8:33 AM CDT) Only the most recent of3 resultswithin the time period is included. Glucose 95 74 - 109 MG/DL [facility] Blood Urea Nitrogen 11 7 - 25 MG/DL [facility] Creatinine 0.7 0.6 - 1.3 MG/DL [facility] Sodium 139 136 - 145 MMOL/L [facility] Potassium 3.9 3.5 - 5.1 MMOL/L [facility] Chloride 105 98 - 107 MMOL/L [facility] Co2 27 21 - 31 MMOL/L [facility] Calcium 9.5 8.6 - 10.3 MG/DL [facility] Protein Total 7.4 6.4 - 8.9 G/DL [facility] Albumin 4.5 3.5 - 5.7 G/DL [facility] A/G Ratio 1.6 0.8 - 2.0 [facility] Alkaline Phosphatase 93 34 - 104 U/L [facility] Alt (SGPT) 15 7 - 52 U/L [facility] AST(SGOT) 15 13 - 39 U/L [facility] Bilirubin, Total 0.6 0.3 - 1.0 MG/DL [facility] Est GFR >90 >90 ML/MIN/1. 73sq.m [facility] GFR Comment Reported eGFR is based on the CKD-EPI 2020 equation that does not use a race coefficient. [facility] Comment: eGFR declines with age, even in people without kidney disease. SEE CHART BELOW FOR AVERAGE ESTIMATED eGFR BASED ON AGE. AGE(YEARS) AVERAGE ESTIMATED GFR <60 >90 60-69 85 >70 75 Blood 05/22/2025 8:33 AM CDT 05/22/2025 8:35 AM CDT us Darnell Brown MD CHEMISTRY ORDERABLES Final Result [facility] [address] [place], [place] [address] * (ABNORMAL) TROPONIN (05/12/2025 11:42 AM CDT) Only the most recent of2 resultswithin the time period is included. TNI HIGH SENSITIVITY 3.7(L) 10.1 - 27.1 PG/ML [facility] Comment: Troponin results differ between methods due to selection standardization or traceability. Do not use results between troponin methods interchangeably. Blood 05/12/2025 11:4 2 AM CDT 05/12/2025 11:47 AM CDT us Denzel Gibson MD CHEMISTRY ORDERABLES Final Resul t Performing Organization Address [facility] de Phone Number [address] * MAGNESIUM (05/12/2025 9:57 AM CDT) Only the most recent of2 resultswithin the time period is included. Pathologist [facility] Magnesium 2.1 1.9 - 2.7 MG/DL [facility] Blood 05/12/2025 9:57 AM CDT 05/12/2025 10:02 AM CDT us Denzel Gibson MD CHEMISTRY ORDERABLES Final Resul t Performing Organization Address [facility] Phone Number [address] * XR CHEST PORTABLE (05/12/2025 9:55 AM CDT) Anatomical Region Laterality Modality Chest Radiographic Marci ging 05/12/2025 9:40 AM CDT Narrative 05/12/2025 10:37 AM CDT EXAM DESCRIPTION: XR CHEST 1 VIEW CLINICAL HISTORY: Female, 40 years old. Chest pain. COMPARISON: XR Chest 05/21/2024. TECHNIQUE: 1 view radiograph of the chest was obtained. FINDINGS: The heart size is normal. The thoracic aorta is defined. There is no confluent consolidation or vascular congestion or pleural effusion. There is no pneumothorax or mediastinal widening or hilar abnormality. Osseous structures are grossly unremarkable. IMPRESSION: No acute cardiopulmonary disease. Awaiting retrieval of prior outside imaging. An addendum can be provided upon retrieval and notification. Electronically signed by: Antione Rodas MD 05/12/2025 10:37 AM CDT RP Procedure Note Antione Rodas MD - 05/12/2025 EXAM DESCRIPTION: XR CHEST 1 VIEW CLINICAL HISTORY: Female, 40 years old. Chest pain. COMPARISON: XR Chest 05/21/2024. TECHNIQUE: 1 view radiograph of the chest was obtained. FINDINGS: The heart size is normal. The thoracic aorta is defined. There is noconfluent consolidation or vascular congestion or pleural effusion. There is no pneumothorax ormediastinal widening or hilar abnormality. Osseous structures are grossly unremarkable. IMPRESSION: No acute cardiopulmonary disease. Awaiting retrieval of prior outside imaging. An addendum can be providedupon retrieval and notification. Electronically signed by: Antione Rodas MD 05/12/2025 10:37 AM CDTRP Denzel Gibson MD [facility] IMG DIAG ORDERABLES Final Re sult * EKG (05/12/2025 9:12 AM CDT) Denzel Gibson MD ECG ORDERABLES Final Result Performing Organization Address City/State/[facility] Co de Phone Number [address] * (ABNORMAL) POCT URINALYSIS DIPSTICK (MANUAL) (04/25/2025 2:11 PM CDT) Leukocyte Esterase UA Trace cell/hpf [facility] Nitrite UA Negative mg/dL [facility] Urobilinogen UA 0.2 EU/dL [facility] Protein UA Negative mg/dL [facility] pH UA 7.0 pH [facility] Blood UA Small Negative, Trace, Small, Moderate mg/dL [facility] Specific [place] UA 1.010 [facility] Ketones UA Negative mg/dL [facility] Bilirubin UA Negative Negative, Small, Moderate, Large mg/dL [facility] Glucose UA Negative mg/dL [facility] Color Fluid Yellow [facility] G[facility] Clarity Fluid Clear [facility] LOGY [facility] 04/25/2025 2:11 PM CDT Israel Rios MD POINT OF CARE TEST OR DERABLES Final Result Performing Organization Address [facility] Co de Phone Number [facility] [address] * POCT BLADDER SCAN (04/25/2025 1:32 PM CDT) Volume, Bladder Scan 2 mL [facility] 04/25/2025 1:32 PM CDT Israel Rios MD POINT OF CARE TEST OR DERABLES Final Result Performing Organization Address [facility] Co de Phone Number [facility] [address] * TSH THIRD GENERATION (04/03/2025 1:30 PM CDT) TSH 1.79 0.45 - 5.33 uIU/mL [facility] [place] Comment: 0.05-3.70 FEMALES, 1ST TRIMESTER 0.31-4.35 FEMALES, 2ND TRIMESTER 0.41-5.18 FEMALES, 3RD TRIMESTER Blood 04/03/2025 1:30 PM CDT 04/03/2025 1:35 PM CDT Roberto Rubin MD CHEMISTRY ORDERABLES Final R esult Performing Organization Address [facility] Co de Phone Number [facility] [place] [address] [place] [address] from Last 3 Months Insurance ANTHEM/BCBS ANTHEM/BCBS Advance Directives * Full Code (Latest Code Status on File) Date Activated Date Inactivated Comments 02/09/2024 9:19 AM 02/09/2024 1:00 PM Care Teams Gear Straightener Relationship Specialty Start Date End Date Roberto Rubin MD [address] [place] [phone] PCP - General Family Medicine 09/24/23
--- OUTSIDE RECORDS SUMMARY | 2025-05-26 20:57 | XMS_ITS | Encounter Summary ---
Author Organization [facility] althcare Address [facility] [place] [address] Care Team Providers Care Major Account Representative Name Role Phone Roberto Rubin MD Primary Care Provider Encounter Details Date Type Department Care Team (Late st Contact Info) Description 11/23/2018 Orders Only [facility] Medical Group Family Medicine [address] [place] [phone] Mayelin Hobson, ELDON Dysuria (Primary Dx) Social History Tobacco Use Types Packs/Day Years [...] on file documented as of this encounter Results * Urinalysis, Culture if Indicated (11/24/2018 8:06 AM DIRECTOR OF PUBLIC HEALTH) Color, Urine Yellow Colorless, Light Yellow, Yellow, Penny 11/24/2018 8:14 AM DIRECTOR OF PUBLIC HEALTH PRIMARY CARE Appearance, Urine Clear Clear 11/24/2018 8:14 AM DIRECTOR OF PUBLIC HEALTH PRIMARY CARE Glucose, Urine Negative Negative mg/dL 11/24/2018 8:14 AM DIRECTOR OF PUBLIC HEALTH PRIMARY CARE Bilirubin, Urine Negative Negative 11/24/19 19 8:14 AM DIRECTOR OF PUBLIC HEALTH PRIMARY CARE Ketone Negative Negative mg/dL 11/24/2018 8:14 AM DIRECTOR OF PUBLIC HEALTH PRIMARY CARE Specific Rodney,Urine 1.020 1.010 - 1.025 11/24/2018 8:14 AM DIRECTOR OF PUBLIC HEALTH PRIMARY CARE Occult Blood Urine Negative Negative 11/24/2018 8:14 AM DIRECTOR OF PUBLIC HEALTH PRIMARY CARE pH,Urine 6.0 5 - 8 [pH] 11/24/2018 8:14 AM DIRECTOR OF PUBLIC HEALTH PRIMARY CARE Protein, Urine Negative Negative mg/dL 11/24/2018 8:14 AM DIRECTOR OF PUBLIC HEALTH PRIMARY CARE Urobilinogen 0.2 <1.1 mg/dL 11/24/2018 8:14 AM DIRECTOR OF PUBLIC HEALTH PRIMARY CARE Nitrite, Urine Negative Negative 11/24/2018 8:14 AM DIRECTOR OF PUBLIC HEALTH PRIMARY CARE Leukocyte Esterase, Urine Negative Negative 11/24/2018 8:14 AM DIRECTOR OF PUBLIC HEALTH PRIMARY CARE Urine specimen (specimen) Urine specimen obtained by clean catch procedure / Unknown 11/24/2018 8:06 AM DIRECTOR OF PUBLIC HEALTH 11/24/2018 8:10 AM DIRECTOR OF PUBLIC HEALTH us Gaur[facility] URINE ORDERABLES Final R esult Performing Organization Address City/State/[facility] Co de Phone Number PRIMARY CARE [address] [place] [address] documented in this encounter Visit Diagnoses Diagnosis Dysuria- Primary documented in this encounter Additional Health Concerns Infection Onset Date Last Indicated Resolved Time R/O COVID-19 12/05/2020 12/05/2020 12/05/2020 1:45 PM DIRECTOR OF PUBLIC HEALTH R/O COVID-19 01/07/2022 01/07/2022 01/08/2022 4:24 AM DIRECTOR OF PUBLIC HEALTH R/O COVID-19 06/10/2022 06/10/2022 06/11/2022 3:44 PM CDT documented as of this encounter Care Teams Major Account Representative Relationship Specialty Start Date End Date Roberto Rubin MD [address] [place] [phone] PCP - General Family Medicine 01/27/24 documented as of this encounter
--- OUTSIDE RECORDS SUMMARY | 2025-05-26 20:57 | XMS_ITS | Encounter Summary ---
Author Organization [facility] althcare Address [facility] [place] [address] Care Team Providers Care Analytics Developer Name Role Phone Roberto Rubin MD Primary Care Provider [phone] Encounter Details Date Type Department Care Team (Late st Contact Info) Description 12/20/2018 Documentation [facility] Medical Group Family Medicine [address] [place] [phone] Mike Epps MD Social History Tobacco Use Types Packs/Day Years [...] R/O COVID-19 12/05/2020 12/05/2020 12/05/2020 1:45 PM BYPRODUCTS MAKER R/O COVID-19 01/07/2022 01/07/2022 01/08/2022 4:24 AM BYPRODUCTS MAKER R/O COVID-19 06/10/2022 06/10/2022 06/11/2022 3:44 PM CDT documented as of this encounter Care Teams Analytics Developer Relationship Specialty Start Date End Date Roberto Rubin MD [address] [place] [phone] PCP - General Family Medicine 01/27/24 documented as of this encounter
--- OUTSIDE RECORDS SUMMARY | 2025-05-26 20:57 | XMS_ITS | Encounter Summary ---
Author Organization [facility] althcare Address [facility] [place] [address] Care Team Providers Care Broom Builder Name Role Phone Roberto Rubin MD Primary Care Provider Encounter Details Date Type Department Care Team (Late st Contact Info) Description 04/25/2019 Documentation [facility] Medical Group Family Medicine [address] [place] [phone] Mike Epps MD Social History Tobacco Use [...] R/O COVID-19 12/05/2020 12/05/2020 12/05/2020 1:45 PM AGRICULTURAL COMMODITIES GRADER R/O COVID-19 01/07/2022 01/07/2022 01/08/2022 4:24 AM AGRICULTURAL COMMODITIES GRADER R/O COVID-19 06/10/2022 06/10/2022 06/11/2022 3:44 PM CDT documented as of this encounter Care Teams Broom Builder Relationship Specialty Start Date End Date Roberto Rubin MD [address] [place] [phone] PCP - General Family Medicine 01/27/24 documented as of this encounter
--- OUTSIDE RECORDS SUMMARY | 2025-05-26 20:57 | XMS_ITS | Encounter Summary ---
Author Organization [facility] althcare Address [facility] [place] [address] Care Team Providers Care Dry Janitor Name Role Phone Roberto Rubin MD Primary Care Provider Encounter Details Date Type Department Care Team (Late st Contact Info) Description 11/14/2019 Documentation COUNTS INCLUDE 234 BEDS AT [facility] Medical Group Family Medicine [address] [place] [phone] Mike Epps MD Social History Tobacco Use [...] R/O COVID-19 12/05/2020 12/05/2020 12/05/2020 1:45 PM CHIEF OPHTHALMIC TECHNICIAN R/O COVID-19 01/07/2022 01/07/2022 01/08/2022 4:24 AM CHIEF OPHTHALMIC TECHNICIAN R/O COVID-19 06/10/2022 06/10/2022 06/11/2022 3:44 PM CDT documented as of this encounter Care Teams Dry Janitor Relationship Specialty Start Date End Date Roberto Rubin MD [address] [place] [phone] PCP - General Family Medicine 01/27/24 documented as of this encounter
--- OUTSIDE RECORDS SUMMARY | 2025-05-26 20:57 | XMS_ITS | Encounter Summary ---
Author Organization [facility] althcare Address [facility] [place] [address] Care Team Providers Care Lining Layer Name Role Phone Roberto Rubin MD Primary Care Provider [phone] Encounter Details Date Type Department Care Team (Late st Contact Info) Description 05/31/2020 Orders Only [facility] Medical Group Family Medicine [address] [place] [phone] Mike Epps MD Social History Tobacco Use Types Packs/Day Years Used Date Smoking Tobacco: Never Smokeless Tobacco: Never Alcohol Use Standard Drinks/Week Comments Yes 0 (1 standard drink = 0.6 oz pur e alcohol) occasionally Comments No Sex and Gender Information Value Date Recorded Sex Assigned at Not on file Legal Sex Female 9:43 PM CDT Gender Identity Not on file Sexual Orientation Not on file COVID-19 Exposure Response Date Recorded In the last month, have you been in contact with someone who was confirmed or suspected to have Coronavirus / COVID-19? No / Unsure 05/01/2020 3:47 PM CDT documented as of this encounter Plan of Treatment Not on file documented as of this encounter Visit Diagnoses Not on filedocumented in this encounter Additional Health Concerns Infection Onset Date Last Indicated Resolved Time R/O COVID-19 12/05/2020 12/05/2020 12/05/2020 1:45 PM JAVA DESIGNER R/O COVID-19 01/07/2022 01/07/2022 01/08/2022 4:24 AM JAVA DESIGNER R/O COVID-19 06/10/2022 06/10/2022 06/11/2022 3:44 PM CDT documented as of this encounter Care Teams Lining Layer Relationship Specialty Start Date End Date Roberto Rubin MD [address] [place] [phone] PCP - General Family Medicine 01/27/24 documented as of this encounter
--- OUTSIDE RECORDS SUMMARY | 2025-05-26 20:57 | XMS_ITS | Encounter Summary ---
Author Organization [facility] althcare Address [facility] [place] [address] Care Team Providers Care Manager Convention Name Role Phone Roberto Rubin MD Primary Care Provider Reason for Visit * Reason Comments Med Refill Encounter Details Date Type Department Care Team (Late st Contact Info) Description 10/18/2019 Refill [facility] Medical Group Family Medicine [address] [place] [phone] Mike Epps MD Essential hypertension Social History [...] R/O COVID-19 12/05/2020 12/05/2020 12/05/2020 1:45 PM CLAIM CLERK R/O COVID-19 01/07/2022 01/07/2022 01/08/2022 4:24 AM CLAIM CLERK R/O COVID-19 06/10/2022 06/10/2022 06/11/2022 3:44 PM CDT documented as of this encounter Care Teams Manager Convention Relationship Specialty Start Date End Date Roberto Rubin MD [address] [place] [phone] PCP - General Family Medicine 01/27/24 documented as of this encounter
--- OUTSIDE RECORDS SUMMARY | 2025-05-26 20:57 | XMS_ITS | Clinical Summary ---
Author Organization [facility] althcare Address [facility] [place] [address] Care Team Providers Care Manager Of Allied Health Services Name Role Phone Roberto Rubin MD Primary Care Provider Allergies Active Allergy Reactions Criticality Noted Date Comments Cefaclor Rash Medium 12/12/2004 - Medications ergocalciferol, vitamin D2, (VITAMIN D2 ORAL) Take by mouth Active MULTIVIT,[id number] ORAL Take by mouth Active modafiniL (PROVIGIL) 100 mg tablet Take 1 tablet (100 mg total) by mouth every morning 3 Active baclofen (LIORESAL) 20 mg tablet Take 1.5 tablets (30 mg total) by mouth 2 (two) times a day Active diroximel fumarate (Vumerity) 231 mg capsule,delayed release(DR/EC) Take 462 mg by mouth 2 (two) times a day Active levocetirizine (Xyzal) 5 mg tabletIndication s:Seasonal allergies Take 1 tablet (5 mg total) by mouth every evening 30 tablet 11 3 Active Additional Information Patient not taking.Reported on 08/24/2023 cyclobenzaprine (FLEXERIL) 5 mg tabletIndication s:Muscle spasm TAKE ONE TABLET BY MOUTH TWICE DAILY NEEDED FOR MUSCLE SPASMS 60 tablet 2 3 Active amLODIPine (NORVASC) 10 mg tabletIndication s:Migraine without status migrainosus, not intractable, unspecified migraine type TAKE ONE TABLET EVERY DAY 30 tablet 11 4 Active pantoprazole (PROTONIX) 40 mg EC tablet Take 1 tablet (40 mg total) by mouth daily 4 Active lisinopriL 10 mg tablet Take 1 tablet (10 mg total) by mouth daily 4 Active DULoxetine (CYMBALTA) 30 mg capsule Take 1 capsule (30 mg total) by mouth daily 4 Active promethazine (PHENERGAN) 12.5 mg tabletIndication s:Nausea and vomiting, unspecified vomiting type Take 1 tablet (12.5 mg total) by mouth every 6 (six) hours as needed for nausea or vomiting 10 tablet 4 Active Active Problems Problem Noted Date Diagnosed Date Essential hypertension 02/13/2023 Depressed mood 02/13/2023 Fatigue 02/13/2023 Migraine without status migrainosus, not intract able 10/23/2022 02/13/2023 Attention deficit hyperactivity disorder (ADHD) 10/23/2022 02/13/2023 Chronic migraine without aur a, intractable, without status migrainosus 06/10/2022 Dysphagia 02/17/2018 Otitis externa 01/08/2018 Insomnia 01/06/2018 Multiple sclerosis 01/06/2018 Menorrhagia with irregular cycle 10/13/2017 Immunizations Immunization Administration Dates Next Due Influenza (IM) Quad PF 09/01/2020 Influenza TIV (IM) 09/06/2014 Moderna Covid-19, Mrna, Lnp-s, Pf, 100mcg/0.5ml Dose 04/04/2021 Tdap 03/02/2020 Family History Medical History Relation Name Comments Coronary artery disease Maternal Grandfather Baltazar terry Hypertension Maternal Grandfather Baltazar Olivares Hypertension Maternal Grandmother Palak Pathak Colon cancer Other Maternal Great Uncle Coronary artery disease Paternal Grandfather Osteoporosis Paternal Grandmother Diabetes Paternal Great-Grandmother Relation Name Status Comments Maternal Grandfather Baltazar Olivares Maternal Grandmother Palak Pathak Other Maternal Great Uncle Alive Paternal Grandfather Paternal Grandmother Paternal Great-Grandmother Social History Tobacco Use Types Packs/Day Years Used Date Smoking Tobacco: Never Smokeless Tobacco: Never Tobacco Cessation:Counseling Given: Yes Alcohol Use Standard Drinks/Week Comments Yes 0 (1 standard drink = 0.6 oz pur e alcohol) occasionally PHQ-2 Answer Date Recorded PHQ-2 Score 3 04/30/2023 PHQ-9 Answer Date Recorded PHQ-9 Total Score 18 04/30/2023 Comments No Sex and Gender Information Value Date Recorded Sex Assigned at Not on file Legal Sex Female 9:43 PM CDT Gender Identity Not on file Sexual Orientation Not on file Last Filed Vital Signs Vital Sign Reading Time Taken Comments Blood Pressure 114/80 04/26/2024 8:00 PM CDT Pulse 67 04/26/2024 8:00 PM CDT Temperature 36.1 C (96.9 F) 04/26/2024 3:39 PM CDT Respiratory Rate 18 04/26/2024 8:00 PM CDT Oxygen Saturation 97% 04/26/2024 8:00 PM CDT Inhaled Oxygen Concentration - - Weight 99.8 kg (220 lb) 04/26/2024 3:39 PM CDT Height 162.6 cm (5' 4) 04/26/2024 3:39 PM CDT Body Mass Index 37.76 04/26/2024 3:39 PM CDT Plan of Treatment Health Maintenance Due Date Last Done Comments Osteoporosis 1986 Pap Smear 1986 MMR Vaccines (1 of 1 - Standard series) 1987 Varicella Vaccines (1 of 2 - 13+ 2-dose series) 1999 Hepatitis B Vaccines (1 of 3 - 19+ 3-dose series) 2005 COVID-19 Vaccine (3 - 2023-2 5 season) 2024 04/04/2021, 03/07/2021 Influenza Vaccine (#1) 2025 0, 09/06/2014 DTaP,Tdap,and Td Vaccines (2 - Td or Tdap) 03/02/2030 03/02/2020 RSV Vaccines and 60 Years or Older (1 - 1-dose 75+ series) 2061 AMB Pneumococcal 0-49 yrs Aged Out No longer eligible based on patient's age to complete this topic HIB Vaccines Aged Out No longer eligi ble based on patient's age to complete this topic HPV Vaccines Aged Out No longer eligi ble based on patient's age to complete this topic Hepatitis A Vaccines Aged Out No long er eligible based on patient's age to complete this topic IPV Vaccines Aged Out No longer eligi ble based on patient's age to complete this topic Meningococcal ACWY Vaccine Aged Out N o longer eligible based on patient's age to complete this topic Meningococcal B Vaccine Aged Out No l onger eligible based on patient's age to complete this topic RSV Vaccines <20 Months Aged Out No l onger eligible based on patient's age to complete this topic Insurance [facility] Address: [facility] [id number] [place] [phone] MOTOR VEHICLE ACCIDENT Assist [employer]UE CHO[employer] Advance Directives For more information, please contact: [phone] * Full Code (Latest Code Status on File) Date Activated Date Inactivated Comments 10/13/2017 8:56 AM 10/13/2017 3:02 PM Care Teams Manager Of Allied Health Services Relationship Specialty Start Date End Date Roberto Rubin MD [address] [place] [phone] PCP - General Family Medicine 01/27/24
--- OUTSIDE RECORDS SUMMARY | 2025-05-26 20:57 | XMS_ITS | Encounter Summary ---
Author Organization [facility] althcare Address [address] [place] [address] Care Team Providers Care Personal Lines Insurance Advisor Name Role Phone Roberto Rubin MD Primary Care Provider Encounter Details Date Type Department Care Team (Late st Contact Info) Description 12/09/2017 Orders Only [facility] Medical Group Internal Medicine and Pediatrics [address] [place] [address] [phone] Chas Marvin MD [address] [place] [phone] Social History Tobacco Use Types Packs/Day [...] R/O COVID-19 12/05/2020 12/05/2020 12/05/2020 1:45 PM MANAGER HUMAN CAPITAL R/O COVID-19 01/07/2022 01/07/2022 01/08/2022 4:24 AM MANAGER HUMAN CAPITAL R/O COVID-19 06/10/2022 06/10/2022 06/11/2022 3:44 PM CDT documented as of this encounter Care Teams Personal Lines Insurance Advisor Relationship Specialty Start Date End Date Roberto Rubin MD [address] [place] [phone] PCP - General Family Medicine 01/27/24 documented as of this encounter
--- OUTSIDE RECORDS SUMMARY | 2025-05-26 20:57 | XMS_ITS | Encounter Summary ---
Author Organization [facility] althcare Address [facility] [place] [address] Care Team Providers Care Orthopedics Nurse Name Role Phone Roberto Rubin MD Primary Care Provider Reason for Visit * Reason Comments Med Refill Encounter Details Date Type Department Care Team (Late st Contact Info) Description 05/20/2019 Refill [facility] Medical Group Family Medicine [address] [place] [phone] Mike Epps MD Social History Tobacco Use [...] R/O COVID-19 12/05/2020 12/05/2020 12/05/2020 1:45 PM AUTHOR R/O COVID-19 01/07/2022 01/07/2022 01/08/2022 4:24 AM AUTHOR R/O COVID-19 06/10/2022 06/10/2022 06/11/2022 3:44 PM CDT documented as of this encounter Care Teams Orthopedics Nurse Relationship Specialty Start Date End Date Roberto Rubin MD [address] [place] [phone] PCP - General Family Medicine 01/27/24 documented as of this encounter
--- OUTSIDE RECORDS SUMMARY | 2025-05-26 20:57 | XMS_ITS | Encounter Summary ---
Author Organization [facility] althcare Address [facility] [place] [address] Care Team Providers Care Advanced Registered Nurse Name Role Phone Roberto Rubin MD Primary Care Provider [phone] Reason for Visit * Reason Comments Med Refill Encounter Details Date Type Department Care Team (Late st Contact Info) Description 05/22/2020 Refill [facility] Medical Group Family Medicine [address] [place] [phone] Mike Epps MD Essential hypertension Social History [...] R/O COVID-19 12/05/2020 12/05/2020 12/05/2020 1:45 PM BEHAVIORAL INTERVENTION SPECIALIST R/O COVID-19 01/07/2022 01/07/202201/08/2022 4:24 AM BEHAVIORAL INTERVENTION SPECIALIST R/O COVID-19 06/10/2022 06/10/2022 06/11/2022 3:44 PM CDT documented as of this encounter Care Teams Advanced Registered Nurse Relationship Specialty Start Date End Date Roberto Rubin MD [address] [place] [phone] PCP - General Family Medicine 01/27/24 documented as of this encounter
--- OUTSIDE RECORDS SUMMARY | 2025-05-26 20:57 | XMS_ITS | Data Portability ---
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 [email or web address] Not available 05/27/2024 13:56:06 08/23/2024 08/23/2024 40 minutes of total time on the day of the encounter were spent in preparation for the clinic visit, reviewing records, tests, counseling and education of the patient, and family, ordering medications, tests and procedures as appropriate, and documenting clinical information in the electronic health record. [email or web address] Not available 08/23/2024 20:59:02 03/06/2025 03/06/2025 40 minutes of total time on the day of the encounter were spent in preparation for the clinic visit, reviewing records, tests, counseling and education of the patient, and family, ordering medications, tests and procedures as appropriate, and documenting clinical information in the electronic health record. [email or web address] Not available 03/06/2025 10:12:36 Plan of Treatment Reminders Order Date Submit Date Provider Last Modified By Organization Details Last Modified Time Details Appointments Establish ed Patient 15 2024 10:00A M Joyce Alonzo MD Not available Not available Not available Lab None recorded. Referral None recorded. Procedures None recorded. Surgeries None recorded. Imaging MRI, brain, w/wo contrast - TUES & THURS MORNINGS 2024 025 [email or web address] [facility], [address] [place], [address], 03/06/2025 10:28:14 MRI, cervical spine, w/wo contrast - TUES OR THURS MORNING 2024 [email or web address] [facility], [address] [place], [address], 03/06/2025 10:14:15 MRI, thoracic spine, w/wo contrast - TUES OR TH MORNING 2024 025 [email or web address] [address] [facility], [address] [place], [address], 03/06/2025 10:28:14 Medication Orders baclofen 20 mg tablet 2024 025 [facility], [address] [place] [address], [id number], 03/06/2025 13:25:24 Kesimpta Pen 20 mg/0.4 mL subcutane ous pen injector [address], [address], 03/06/2025 10:14:14 baclofen 20 mg tablet 2023 024 clar[facility], [address] [place] [address], [id number], 08/23/2024 20:59:03 Kesimpta Pen 20 mg/0.4 mL subcutane ous pen injector 2023 [facility]24 [facility], [address] [place] [address], [id number], 08/23/2024 09:42:47 Patient TargetsNo targets recorded. Patient InstructionsNo instructions recorded. Reason for Referral None Reported. Results Created Date Observation Date Name Description Value Unit Range Abnormal Flag Note LastModifiedBy Organization Detail LastModifiedTime 05/02/20 24 05/02/2024 CBC W/DIF F white blood CT 7.2 K/cum m 3.2-11 .0 Not Available [facility] [address] [place] [address], [address], 05/02/2024 13:12:14 05/02/20 24 05/02/2024 CBC W/DIF F red blood count 4.89 M/cum m 3.80-5 .20 Not Available [facility] [address], [address], 05/02/2024 13:12:14 05/02/20 24 05/02/2024 CBC W/DIF F hemoglobin 15.0 g/dL 11.6-1 5.2 Not Available [facility] [address], [address], 05/02/2024 13:12:14 05/02/20 24 05/02/2024 CBC W/DIF F hematocrit 44.1 % 34.4-4 5.6 Not Available [facility] [address], [address], 05/02/2024 13:12:14 05/02/20 24 05/02/2024 CBC W/DIF F MCV 90.2 fL 80.0-1 00.0 Not Available [facility] [address], [address], 05/02/2024 13:12:14 05/02/20 24 05/02/2024 CBC W/DIF F MCH 30.7 pg 27.0-3 4.0 Not Available [facility] [address], [address], 05/02/2024 13:12:14 05/02/20 24 05/02/2024 CBC W/DIF F MCHC 34.0 g/dL 30.5-3 4.5 Not Available [facility] [address], [address], 05/02/2024 13:12:14 05/02/20 24 05/02/2024 CBC W/DIF F RDW 13.0 % 11.5-1 5.0 Not Available [facility] [address], [address], 05/02/2024 13:12:14 05/02/20 24 05/02/2024 CBC W/DIF F platelet count 333 K/cum m 150-45 0 Not Available [facility] [address], [address], 05/02/2024 13:12:14 05/02/20 24 05/02/2024 CBC W/DIF F MPV 8.7 fL 7.7-12 .2 Not Available [facility] [address], [address], 05/02/2024 13:12:14 05/02/20 24 05/02/2024 CBC W/DIF F diff method Electr onic WBC differ ential count Not Available [facility] [address], [address], 05/02/2024 13:12:14 05/02/20 24 05/02/2024 CBC W/DIF F seg neutrophils 73 % Not Available [facility] [address], [address], 05/02/2024 13:12:14 05/02/20 24 05/02/2024 CBC W/DIF F lymphocytes 19 % Not Available [facility] [address], [address], 05/02/2024 13:12:14 05/02/20 24 05/02/2024 CBC W/DIF F monocytes 5 % Not Available [facility] [address], [address], 05/02/2024 13:12:14 05/02/20 24 05/02/2024 CBC W/DIF F eosinophils 2 % Not Available [facility] [address], [address], 05/02/2024 13:12:14 05/02/20 24 05/02/2024 CBC W/DIF F basophils 1 % Not Available [facility] [address], [address], 05/02/2024 13:12:14 05/02/20 24 05/02/2024 CBC W/DIF F absolute neutrophils 5.28 K/cum m 1.30-6 .00 Not Available [facility] [address], [address], 05/02/2024 13:12:14 05/02/20 24 05/02/2024 CBC W/DIF F absolute lymphocytes 1.38 K/cum m 1.00-3 .50 Not Available [facility] [address], [address], 05/02/2024 13:12:14 05/02/20 24 05/02/2024 CBC W/DIF F absolute monocytes 0.32 K/cum m 0.00-1 .00 Not Available [facility] [address], [address], 05/02/2024 13:12:14 05/02/20 24 05/02/2024 CBC W/DIF F absolute eosinophils 0.14 K/cum m 0.00-0 .70 Not Available [facility] [address], [address], 05/02/2024 13:12:14 05/02/20 24 05/02/2024 CBC W/DIF F absolute basophils 0.05 K/cum m 0.00-0 .10 Testi ng by [facility] [address] [facility] JEFFREY [address] Not Available [facility] [address] [place] [address], [address], 05/02/2024 13:12:14 05/02/20 24 05/02/2024 COMP METAB OLIC PNL sodium 136 mmol/ L 137-14 5 low Not Available [facility] [address] [place] [address], [address], 05/02/2024 13:27:53 05/02/20 24 05/02/2024 COMP METAB OLIC PNL potassium 3.7 mmol/ L 3.5-5. 1 Not Available [facility] [address] [place] [address], [address], 05/02/2024 13:27:53 05/02/20 24 05/02/2024 COMP METAB OLIC PNL chloride 98 mmol/ L 98-107 Not Available [facility] [address] [place] [address], [address], 05/02/2024 13:27:53 05/02/20 24 05/02/2024 COMP METAB OLIC PNL CO2 29 mmol/ L 22-30 Not Available [facility] [address] [place] [address], [address], 05/02/2024 13:27:53 05/02/20 24 05/02/2024 COMP METAB OLIC PNL glucose 93 mg/dL 65-99 If resul t of rando m gluco se > or = 200 or if resul t of fasti ng gluco se is > 125 confi rm Diabe willie Melli tus diagn osis with secon d gluco se on a diff day. Not Available [facility] [address] [place] [address], [place], [address], 05/02/2024 13:27:53 05/02/20 24 05/02/2024 COMP METAB OLIC PNL BUN 19 mg/dL 7-17 high Not Available [facility] [address] [place] [address], [address], 05/02/2024 13:27:53 05/02/20 24 05/02/2024 COMP METAB OLIC PNL creatinine 0.72 mg/dL 0.52-1 .04 Not Available [facility] [address] [place] [address], [address], 05/02/2024 13:27:53 05/02/20 24 05/02/2024 COMP METAB OLIC PNL eGFR 110 mL/mi n/1.7 3_M2 >60 Eithe r of the follo wing must be prese nt for >=3 month s to be Chron ic Kidne y Disea se: -GFR less than 60 for >=3 month s -Albu min to Creat inine Ratio >=30 mg/g or other marke rs of kidne y damag e An estim ated GFR chron icall y in the range of >/=90 is categ orize d as weston l or high, which corre spond s to Stage G1 CKD. CKD-E PI equat ion (2020 ) used to estim ate GFR Not Available [facility] [address], [address], 05/02/2024 13:27:53 05/02/20 24 05/02/2024 COMP METAB OLIC PNL BUN/creatini ne ratio 26 ratio 6-22 high Not Available [facility] [address], [address], 05/02/2024 13:27:53 05/02/20 24 05/02/2024 COMP METAB OLIC PNL ALT 37 U/L <35 high Not Available [facility] [address], [address], 05/02/2024 13:27:53 05/02/20 24 05/02/2024 COMP METAB OLIC PNL AST 42 U/L 14-36 high Not Available [facility] [address], [address], 05/02/2024 13:27:53 05/02/20 24 05/02/2024 COMP METAB OLIC PNL alk phosphatase 85 U/L 38-126 Not Available [facility] [address], [address], 05/02/2024 13:27:53 05/02/20 24 05/02/2024 COMP METAB OLIC PNL bilirubin total 1.3 mg/dL 0.2-1. 3 Not Available [facility] [address] [place] [address], [address], 05/02/2024 13:27:53 05/02/20 24 05/02/2024 COMP METAB OLIC PNL protein total 8.3 g/dL 6.3-8. 2 high Not Available [facility] [address] [place] [address], [address], 05/02/2024 13:27:53 05/02/20 24 05/02/2024 COMP METAB OLIC PNL albumin 4.9 g/dL 3.5-5. 0 Not Available [facility] [address], [address], 05/02/2024 13:27:53 05/02/20 24 05/02/2024 COMP METAB OLIC PNL calcium 9.5 mg/dL 8.4-10 .2 Not Available [facility] [address] [place] [address], [address], 05/02/2024 13:27:53 05/02/20 24 05/02/2024 COMP METAB OLIC PNL globulin total 3.4 g/dL 1.9-3. 7 Not Available [facility] [address], [address], 05/02/2024 13:27:53 05/02/20 24 05/02/2024 COMP METAB OLIC PNL A/G ratio 1.4 ratio 1.0-2. 5 Not Available [facility] [address], [address], 05/02/2024 13:27:53 05/02/20 24 05/02/2024 COMP METAB OLIC PNL anion gap 9 mmol/ L 7-17 Testi ng by [facility] [address] [place] [address] Not Available [facility] [address], [address], 05/02/2024 13:27:53 05/02/20 24 05/02/2024 LIPAS E lipase 104 U/L 23-300 Testi ng by [facility] [address] [place] [address] Not Available [facility] [address] [place] [address], [address], 05/02/2024 13:27:55 05/02/20 24 05/02/2024 UA,RF X MICR, RFX CULT glucose-ur NEGATI VE mg/dL neg Not Available [facility] [address], [address], 05/02/2024 15:30:40 05/02/20 24 05/02/2024 UA,RF X MICR, RFX CULT ketone-ur 80 mg/dL neg abnormal Not Available [facility] [address] [place] [address], [address], 05/02/2024 15:30:40 05/02/20 24 05/02/2024 UA,RF X MICR, RFX CULT spec grav-ur >/=1.0 30 1.003- 1.030 Not Available [facility] [address], [address], 05/02/2024 15:30:40 05/02/20 24 05/02/2024 UA,RF X MICR, RFX CULT occult bld-ur TRACE neg abnormal Not Available [facility] [address], [address], 05/02/2024 15:30:40 05/02/20 24 05/02/2024 UA,RF X MICR, RFX CULT pH-ur 5.5 4.5-8. 0 Not Available [facility] [address] [place] [address], [address], 05/02/2024 15:30:40 05/02/20 24 05/02/2024 UA,RF X MICR, RFX CULT protein, ur 30 mg/dL neg abnormal Not Available [facility] [address] [place] [address], [address], 05/02/2024 15:30:40 05/02/20 24 05/02/2024 UA,RF X MICR, RFX CULT nitrite-ur NEGATI VE neg Not Available [facility] [address] [place] [address], [address], 05/02/2024 15:30:40 05/02/20 24 05/02/2024 UA,RF X MICR, RFX CULT leuk est-ur SMALL neg abnormal Not Available [facility] [address] [place] [address], [address], 05/02/2024 15:30:40 05/02/20 24 05/02/2024 UA,RF X MICR, RFX CULT color-ur DARK YELLOW yel abnormal Not Available [facility] [address] [place] [address], [address], 05/02/2024 15:30:40 05/02/20 24 05/02/2024 UA,RF X MICR, RFX CULT appearance-u r CLOUDY clear abnormal Testi ng by [facility] [address] [place] [address] Not Available [facility] [address] [place] [address], [address], 05/02/2024 15:30:40 05/02/20 24 05/02/2024 HCG UA HCG UA NEGATI VE neg Testi ng by [facility] [address] [place] [address] Not Available [facility] [address] [place] [address], [address], 05/02/2024 15:32:54 05/02/20 24 05/02/2024 UA MICRO SCOPI C RFX WBC-ur 11-20 /hpf ztf abnormal Not Available [facility] [address] [place] [address], [address], 05/02/2024 15:33:08 05/02/20 24 05/02/2024 UA MICRO SCOPI C RFX epi cell-ur 6-10 /hpf ztf abnormal Not Available [facility] [address] [place] [address], [address], 05/02/2024 15:33:08 05/02/20 24 05/02/2024 UA MICRO SCOPI C RFX RBC-ur 11-20 /hpf ztt abnormal Not Available [facility] [address] [place] [address], [address], 05/02/2024 15:33:08 05/02/20 24 05/02/2024 UA MICRO SCOPI C RFX bacteria-ur SLIGHT /hpf trace abnormal Not Available [facility] [address] [place] [address], [address], 05/02/2024 15:33:08 05/02/20 24 05/02/2024 UA MICRO SCOPI C RFX casts,hyalin e-ur 6-10 /lpf none abnormal Not Available [facility] [address] [place] [address], [address], 05/02/2024 15:33:08 05/02/20 24 05/02/2024 UA MICRO SCOPI C RFX urine comment micro This urine was exami marky micro scopi andrew for the prese nce of WBCs, RBCs, Epith elial cells , bacte archie, casts , and other forme d eleme nts. Only those eleme nts seen were repor leidy. ZTF = 0-5 and ZTT = 0-3 Testi ng by [facility] [address] [facility] [place] [address] Not Available [facility] [address] [place] [address], [address], 05/02/2024 15:33:08 05/02/20 24 05/02/2024 URINE CULTU RE specimen description URINE Not Available [facility] [address] [place] [address], [address], 05/04/2024 09:42:59 05/02/20 24 05/02/2024 URINE CULTU RE special requests NONE Testi ng by [facility] [address] [place] [address] Not Available [facility] [address], [address], 05/04/2024 09:42:59 05/02/20 24 05/04/2024 URINE CULTU RE culture THREE OR MORE ORGAN ISMS PRESE NT, EACH GREAT ER THAN 10,00 0 CFU/M L. THESE ORGAN ISMS, COMMO NLY FOUND ON EXTER NAL AND INTER NAL GENIT ARACELI, ARE CONSI DERED COLON IZERS . NO FURTH ER TESTI NG PERFO RMED. Not Available [facility] [address], [address], 05/04/2024 09:42:59 05/02/20 24 05/04/2024 URINE CULTU RE report status FINAL 05/04 Not Available [facility] [address], [address], 05/04/2024 09:42:59 08/04/20 24 08/04/2024 CBC AUTO DIFF WBC 8.1 thous /uL 4.3-10 .5 Not Available [facility] (Lab) [address] [place] [address], [address], 08/04/2024 10:00:01 08/04/20 24 08/04/2024 CBC AUTO DIFF RBC 4.10 mil/u L 3.93-5 .07 Not Available [facility] (Lab) [address] [place] [address], [address], 08/04/2024 10:00:01 08/04/20 24 08/04/2024 CBC AUTO DIFF HGB 12.9 gm/dL 11.8-1 4.8 Not Available [facility] (Lab) [address] [place] [address], [address], 08/04/2024 10:00:01 08/04/20 24 08/04/2024 CBC AUTO DIFF HCT 38.0 % 35.6-4 5.0 Not Available [facility] (Lab) [address] [place] [address], [address], 08/04/2024 10:00:01 08/04/20 24 08/04/2024 CBC AUTO DIFF MCV 92.7 fL 83.5-9 5.9 Not Available [facility] (Lab) [address] [place] [address], [address], 08/04/2024 10:00:01 08/04/20 24 08/04/2024 CBC AUTO DIFF MCH 31.5 pg 27.4-3 2.0 Not Available [facility] (Lab) [address] [place] [address], [address], 08/04/2024 10:00:01 08/04/20 24 08/04/2024 CBC AUTO DIFF MCHC 33.9 g/dL 31.5-3 4.7 Not Available [facility] (Lab) [address] [place] [address], [address], 08/04/2024 10:00:01 08/04/20 24 08/04/2024 CBC AUTO DIFF rdwcv 12.6 % 11.8-1 4.2 Not Available [facility] (Lab) [address] [place] [address], [address], 08/04/2024 10:00:01 08/04/20 24 08/04/2024 CBC AUTO DIFF RDW-SD 42.9 fL 37.2-4 7.8 Not Available [facility] (Lab) [address] [place] [address], [address], 08/04/2024 10:00:01 08/04/20 24 08/04/2024 CBC AUTO DIFF plt 262 thous /uL 167-40 2 Not Available [facility] (Lab) [address] [place] [address], [address], 08/04/2024 10:00:01 08/04/20 24 08/04/2024 CBC AUTO DIFF MPV 8.6 fL 8.8-12 .0 low Not Available [facility] (Lab) [address] [place] [address], [address], 08/04/2024 10:00:01 08/04/20 24 08/04/2024 CBC AUTO DIFF diff type AUTO Not Available [facility] (Lab) [address] [place] [address], [address], 08/04/2024 10:00:01 08/04/20 24 08/04/2024 CBC AUTO DIFF neut 71.0 % 34.0-6 7.9 high Not Available [facility] (Lab) [address] [place] [address], [address], 08/04/2024 10:00:01 08/04/20 24 08/04/2024 CBC AUTO DIFF lymph 22.2 % 20.4-4 8.6 Not Available [facility] (Lab) [address] [place] [address], [address], 08/04/2024 10:00:01 08/04/20 24 08/04/2024 CBC AUTO DIFF mono 4.9 % 5.0-11 .5 low Not Available [facility] (Lab) [address] [place] [address], [address], 08/04/2024 10:00:01 08/04/20 24 08/04/2024 CBC AUTO DIFF eo 1.0 % 1.0-5. 4 Not Available [facility] (Lab) [address] [place] [address], [address], 08/04/2024 10:00:01 08/04/20 24 08/04/2024 CBC AUTO DIFF baso 0.5 % 0.2-1. 3 Not Available [facility] (Lab) [address] [place] [address], [address], 08/04/2024 10:00:01 08/04/20 24 08/04/2024 CBC AUTO DIFF abs neut 5.7 thous /uL 2.1-6. 6 Not Available [facility] (Lab) [address] [place] [address], [address], 08/04/2024 10:00:01 08/04/20 24 08/04/2024 CBC AUTO DIFF abs lymph 1.8 thous /uL 1.2-3. 9 Not Available [facility] (Lab) [address] [place] [address], [address], 08/04/2024 10:00:01 08/04/20 24 08/04/2024 CBC AUTO DIFF abs mono 0.4 thous /uL 0.3-0. 8 Not Available [facility] (Lab) [address] [place] [address], [address], 08/04/2024 10:00:01 08/04/20 24 08/04/2024 CBC AUTO DIFF abs eo 0.1 thous /uL 0.1-0. 4 Not Available [facility] (Lab) [address] [place] [address], [address], 08/04/2024 10:00:01 08/04/20 24 08/04/2024 CBC AUTO DIFF abs baso 0.0 thous /uL 0.0-0. 1 Not Available [facility] (Lab) [address] [place] [address], [address], 08/04/2024 10:00:01 08/04/20 24 08/04/2024 CBC AUTO DIFF immature gran 0.4 % 0.1-0. 7 Not Available [facility] (Lab) [address] [place] [address], [address], 08/04/2024 10:00:01 08/04/20 24 08/04/2024 CBC AUTO DIFF abs imm gran 0.03 thous /uL 0.0-0. 1 Not Available [facility] (Lab) [address] [place] [address], [address], 08/04/2024 10:00:01 08/04/20 24 08/04/2024 AST AST 14 U/L 13-39 Not Available [facility] (Lab) [address] [place] [address], [address], 08/04/2024 10:36:47 08/04/20 24 08/04/2024 ALT ALT 16 U/L 7-52 Not Available [facility] (Lab) [address] [place] [address], [address], 08/04/2024 10:36:57 Result Notes None recorded. Problems Name Problem SNOMED Code Status Onset Date Resolution Date Notes Provider Name and Address Organization Details Recorded Time Multiple sclerosis 68266332 Active 2023 Joyce Alonzo MD [address], [address], [place], [address], [place] [facility] [place] 4 08:44:13 [place] palsy of right side of face [id number] 9108 Active 2023 Joyce Alonzo MD [address], [address], [place], [address], [place] [facility] 4 11:50:27 Chronic intractable migraine without aura 0965419263132 05 Active 2023 Joyce Alonzo MD [address], [address], [place], [address], [place] - [facility] 4 11:50:28 Depressive disorder 53710115 Active 2023 Joyce Alonzo MD [address], [address], [place], [address], [place] - [facility] [place] 4 13:56:06 Paresthesia 50710839 Active 2023 Joyce Alonzo MD [address], [address], [place], [address], [place] [facility] 4 14:02:55 Problem Notes None recorded. Medical Equipment None Reported. Allergies Allergen ID Allergen Name Allergen Category Reaction Reaction Severity Criticality Documentation Date Start Date Code Code System Note Provider Name and Address Organization Details Recorded Time 7989846 cefaclor medicatio n Not available Not available Not available 05/27/2024 2176 RxNorm Lizeth Davies null, [place] - [facility] [place] 4 10:41:51 Medications Name Sig Start Date Stop Date Status Note LastModified by Organization Details LastModified Time cyclobenz aprine 10 mg tablet Take 1 tablet (10 mg) by mouth 3 times daily as needed active PRN Not Available Not Available No t Available doxycycli ne hyclate 100 mg capsule Take 1 capsule (100 mg) by mouth 2 times daily for 10 days 05/27 completed Not Available Not Available Not Available azithromy maxi 250 mg tablet Take 2 tabs (500 mg) by mouth today, than 1 daily for 4 days. 05/27 completed Not Available Not Available Not Available valacyclo vir 1 gram tablet Take 1 tablet (1,000 mg) by mouth 3 times daily for 7 days 05/27 completed Not Available Not Available Not Available promethaz ine 12.5 mg tablet Take 1 tablet (12.5 mg total) by mouth every 6 (six) hours as needed for nausea or vomiting 03/06 completed NOT TAKING Not Available Not Available Not Available prednison e 20 mg tablet Take 1 tablet (20 mg) by mouth 2 times daily for 5 days 12/31 completed COMPLETE D Not Available Not Available Not Available sulfameth oxazole 800 mg-trimet hoprim 160 mg tablet Take 1 tablet by mouth 2 times daily for 5 days 03/06 completed COMPLETE D Not Available Not Available Not Available baclofen 20 mg tablet TAKE ONE-HALF tablet TWICE DAILY 2024 active Not Available Not Available Not Avai lable ofloxacin 0.3 % ear drops Place FIVE DROPS into BOTH ears daily FOR SEVEN DAYS 03/06 completed COMPLETE D Not Available Not Available Not Available metoclopr amide 5 mg tablet TAKE ONE TABLET BY MOUTH THREE TIMES DAILY NEEDED FOR NAUSEA AND VOMITING 03/06 completed NOT TAKING Not Available Not Available Not Available meclizine 25 mg tablet Take 1 tablet (25 mg) by mouth 3 times daily as needed 12/31 completed NOT TAKING Not Available Not Available Not Available amlodipin e 10 mg tablet TAKE ONE TABLET EVERY DAY 12/31 completed Not Available Not Available Not Available pantopraz ole 40 mg tablet,de layed release Take 1 tablet by mouth once a day before breakfas t active Not Available Not Available No t Available lisinopri l 10 mg tablet Take 1 tablet (10 mg) by mouth daily active Not Available Not Available No t Available montel[address] st 10 mg tablet Take 1 tablet every day by oral route. 12/31 completed NOT TAKING Not Available Not Available Not Available metoprolo l succinate ER 25 mg tablet,ex tended release 24 hr Take 1 tablet (25 mg) by mouth daily active Not Available Not Available No t Available levofloxa maxi 750 mg tablet Take 1 tablet (750 mg) by mouth daily for 10 days 05/27 completed Not Available Not Available Not Available ondansetr on 4 mg disintegr ating tablet DISSOLVE ONE TABLET BY MOUTH THREE TIMES DAILY NEEDED active PRN Not Available Not Available No t Available amoxicill in 875 mg-potass ium clavulana te 125 mg tablet Take 1 tablet by mouth 2 times daily for 10 days 12/31 completed COMPLETE D Not Available Not Available Not Available modafinil 100 mg tablet Take 2 tablets (200 mg) by mouth daily active 1 TAB DAILY Not Available Not Available Not Available escitalop kash 10 mg tablet Take 1 tablet (10 mg total) by mouth daily 12/31 completed not taking Not Available Not Available Not Available cyclobenz aprine 5 mg tablet TAKE ONE TABLET BY MOUTH TWICE DAILY NEEDED FOR MUSCLE SPASMS 12/31 completed NOT TAKING Not Available Not Available Not Available ciproflox acin 0.3 %-dexamet hasone 0.1 % ear drops,sarah penon Place 4 drops into both ears 2 times daily for 7 days 05/27 completed Not Available Not Available Not Available duloxetin e 30 mg capsule,d elayed release Take 1 capsule (30 mg) by mouth 2 times daily active Not Available Not Available No t Available lactulose 10 gram/15 mL oral solution Drink 30 ml by mouth twice a day 03/06 completed NOT TAKING Not Available Not Available Not Available metronida zole 1 % topical gel apply a thin layer to face daily. 03/06 completed NOT TAKING Not Available Not Available Not Available bovine cartilage 1 CAP BID active Not Available Not Available No t Available levocetir izine 5 mg tablet Take 1 tablet (5 mg total) by mouth every evening 05/27 completed Not Available Not Available Not Available Vumerity 231 mg capsule,d elayed release TAKE 2 CAPSULES TWICE A DAY 03/06 completed NOT TAKING Not Available Not Available Not Available Kesimpta Pen 20 mg/0.4 mL subcutane ous pen injector 1 injectio n, once a month 2024 active Not Available Not Available Not Avai lable semagluti de (weight loss) 0.25 mg/0.5 mL subcutane ous pen injector Inject 0.25 mg every week by subcutan eous route. active Not Available Not Available No t Available Vitals Date Recorded Body height Body mass index (BMI) Body weight Heart rate Respiratory rate Body temperature Systolic And Diastolic Provider Name and Address Organization Details Last Updated DateTime 5 162.56 cm 40.2 kg/m2 050223. 05 g 76 /min 16 /min 97.6 [degF] 122/88 mm[Hg] Soraida Mae [facility] 5 09:41:00 Date Recorded Body weight Body mass index (BMI) Body height Body temperature Heart rate Systolic And Diastolic Provider Name and Address Organization Details Last Updated DateTime 4 96356.4 3 g 36.3 kg/m2 162.56 cm 97.8 [degF] 84 /min 136/88 mm[Hg] Lizeth Davies [facility] 4 10:58:07 Date Recorded Body height Body mass index (BMI) Body weight Body temperature Heart rate Systolic And Diastolic Provider Name and Address Organization Details Last Updated DateTime 4 162.56 cm 38.7 kg/m2 883109 g 96.9 [degF] 80 /min 160/90 mm[Hg] Lizeth Davies [facility] 4 09:09:59 Social History Question Answer Notes LastModified by Organizat ion Details LastModified Time Tobacco Smoking Status Never Smoker Lizeth martinez [facility] 05/27/2024 10:42:05 0) Information Provided By : Patient [email or web address] Information not available 05/27/2024 1a) Does The Patient/Caregive r/Family Report The PATIENT Having Any Of These NEW Symptoms Such As Cough? No Information not available 05/27/2024 1b) Does The Patient/Caregive r/Family Report The PATIENT Having Any Of These NEW Symptoms Such As Diarrhea? No [email or web address] Information not available 05/27/2024 1c) Does The Patient/Caregive r/Family Report The PATIENT Having Any Of These NEW Symptoms Such As Fever/chills? No [email or web address] Information not available 05/27/2024 1d) Does The Patient/Caregive r/Family Report The PATIENT Having Any Of These NEW Symptoms Such As Nasal Congestion/Runny Nose? No [email or web address] Information not available 05/27/2024 1e) Does The Patient/Caregive r/Family Report The PATIENT Having Any Of These NEW Symptoms Such As Respiratory Distress (acute)? No [email or web address] Information not available 05/27/2024 1f) Does The Patient/Caregive r/Family Report The PATIENT Having Any Of These NEW Symptoms Such As Rash? No [email or web address] Information not available 05/27/2024 1g) Does The Patient/Caregive r/Family Report The PATIENT Having Any OTHER NEW Symptoms (list)? If No NEW Symptoms, Enter No No Information not available 05/27/2024 What Was The Date Of Your Most Recent Tobacco Screening? 03/06/2025 [email or web address] Information not available 03/06/2025 Sex: Female Functional Status Question Answer Note LastModified by Organization D etails LastModified Time Do you or have you ever used any other forms of tobacco or nicotine? No [email or web address] Information not available 08/23/2024 Mental Status None recorded. Family History Nothing Reported. Medical History No medical history recorded. Gynecological HistoryNo gynecological history recorded. Obstetrics History GPAL:G 0 P 0 0 0 0 Past Encounters Encounter ID Performer Location Encounter Start Date Encounter Closed Date Diagnosis/Indication Diagnosis SNOMED-CT Code Diagnosis ICD10 Code Diagnosis Note [id number] Joyce Alonzo MD [facility] [place] [id number] 05/27/2024 10:17:59 05/27/2024 11:53:30 Multiple sclerosis 77039179 G35 I discussed with the patient in details regarding her condition. I reviewed the history and the neurologic al examinatio n. Her examinatio n showed the right Lawrence's palsy. I reviewed her recent brain and cervical MRIs. She has multiple sclerosis. The brain MRI did not show new or active lesions. Her cervical MRI was negative. She is doing fair. I reviewed the recent episode she had with possible flare up or pseudo-exa cerbation, but then she developed the right Lawrence's palsy. Her brain MRI with and without contrast showed stable MS, no new or active lesions. She received the IV Solu-Medro l. I reviewed the expectatio ns, the relapsing remitting course of the disease. I reviewed the current management . I reviewed the fatigabili ty, she is doing well. She is on provigil 100 mg, 1/2 pill daily, she can retry it to take half a pill twice a day or the whole pill in the morning. Side effects reviewed. She will continue on Vumerity 231 mg, 2 pills twice a day. Side effects reviewed. She will continue to have her CBC, AST and ALT check. I reviewed the elevated liver enzymes may fluctuate. I reviewed the risk for PML. [place] pals y of right side of face [id number] 1706574 G51.0 I discussed with the patient regarding her condition. I reviewed the history and the neuro exam. I reviewed the right facial asymmetry. I reviewed he had right facial palsy, Lawrence's Palsy. I reviewed the anatomy and pathophysi ology. I discussed the following : 1. I reviewed most cases are related to post viral exposure and idiopathic . I reviewed the associatio n with other intracrani al structural abnormalit y, or other metabolic, infectious or inflammato ry disease. I reviewed Lawrence's palsy in associatio n with multiple sclerosis. I reviewed her brain MRI did not show MS lesion in the brainstem, there is no change on her brain MRI. Besides from her symptoms including the change in taste sensation it is more of a peripheral problem. 2. I reviewed the initial management using steroid and antiviral medication s. I reviewed brain scan, to role out structural abnormalit y whether inflammato ry, demyelinat ing, mass/tumor , vascular. Her brain MRI showed a stable MS, no new or active lesions. Her cervical MRI was negative. She already received high-dose of IV Solu-Medro l in the edition she received acyclovir as she reported. 3. I discussed the facial weakness mainly cosmetic, but the more concerning part is eye problems including corneal ulceration and injury. I discussed the importance of having regular eye check, he will need to use the eyedrops more often and regularly, and continues with the eye ointment at bedtime. I also reviewed the use of eye drops and eye patch to protect against corneal injury. 4. I discussed physical therapy and facial massage and electrical stimulatio n to improve recovery. The recovery is not predictabl e, but the majority of patients may improve by 70%, but some patient may improve more and few will not at all. I reviewed that maximum improvemen t may take a year. Chronic in tractable migraine without aura [id number] 84530 G43.711 I discussed with the patient regarding her condition. She has a chronic migraine headaches. She was having more headaches when she was off the baclofen, and now she is better. She is back to the same dose of the baclofen 20 mg 1/2 pill twice a day. Side effects reviewed. Depressive disorder 5531 1981 F32.A I discussed with the patient regarding her condition. She has been under a lot of stress recently especially with her underlying medical conditions . She does have a history of depression . She is on Cymbalta. She follows with the psychiatri c team. Paresthesia 22759903 R20 .2 I discussed that. In the left side of her chest. She possibly has radicular. Possibly musculoske letal of nonspecifi c. I do not think it is related to MS. I reviewed I reviewed the possibilit y of herpetic neuralgia, without a skin rash. She has been reviewed compromise d with the steroid and the stress she is going through. It is better at this time. We will observe. It possibly due to specific pain. [id number] Joyce Alonzo MD [facility] [place] [id number] 08/23/2024 09:06:17 08/23/2024 09:53:21 Multiple sclerosis 50130370 G35 I discussed with the patient in details regarding her condition. I reviewed the history and the neurologic al examinatio n. Her examinatio n showed the right facial weakness, improved. She has multiple sclerosis. She is stable. Her MS is stable, no flare up for long time. The right facial weakness related to peripheral nerve problem. Her last brain MRI did not show new or active lesions. Her cervical MRI was negative. I reviewed her MS and the expectatio ns, the relapsing remitting course of the disease. I reviewed the current management . I discussed the following : 1. I reviewed the fatigabili ty, she is doing well. She is on provigil 100 mg, 1/2 pill daily, she can retry it to take half a pill twice a day or the whole pill in the morning. Side effects reviewed. 2. She will wanted to change her MS medication , she did not want to take pills anymore. She knows the Vumeriti is working for her, she reported the Copaxone worked for her, but had side effects from the generic. She wanted to re-start injectable medication . I reviewed different options. She agreed to start Kesimpta. Side effects reviewed. 3. She will continue to have her CBC, AST and ALT check. I reviewed the liver enzymes may fluctuate. I reviewed the risk for PML. [place] pals y of right side of face [id number] 9710893 G51.0 I discussed with the patient regarding her condition. I reviewed the history and the neuro exam. She had right lawrence's palsy, improved by at least 60%. This is not related to her MS. She is able to close her right eye. I reviewed the massage therapy and electrical stimulatio n to improve recovery. The recovery is not predictabl e, but the majority of patients may improve by 70%, but some patient may improve more and few will not at all. I reviewed that maximum improvemen t may take a year. Chronic in tractable migraine without aura [id number] 31997 G43.711 I discussed with the patient regarding her condition. She has a chronic migraine headaches. She was having more headaches when she was off the baclofen, and now she is better. She is back to the same dose of the baclofen 20 mg 1/2 pill twice a day. Side effects reviewed. Depressive disorder 2426 1324 F32.A I discussed with the patient regarding her condition. She has been under a lot of stress recently especially with her underlying medical conditions . She does have a history of depression . She is on Cymbalta. She follows with the psychiatri c team. Paresthesia 59120148 R20 .2 I discussed the left side of her chest. She is doing very well. This is resolved. Possibly musculoske letal of nonspecifi c. I do not think it is related to MS. [id number] Joyce Alonzo MD [facility] [id number] [place] [address] 03/06/2025 09:29:32 03/06/2025 10:10:54 Multiple sclerosis 78984945 G35 I discussed with the patient in details regarding her condition. I reviewed the history and the neurologic al examinatio n. Her examinatio n showed the right facial weakness, improved. She has multiple sclerosis. She is stable. Her MS is stable, no flare up for long time. The right facial weakness related to peripheral nerve problem. Her last brain MRI did not show new or active lesions. Her cervical MRI was negative. I reviewed her MS and the expectatio ns, the relapsing remitting course of the disease. I reviewed the current management . I discussed the following : 1. I reviewed the fatigabili ty, she is doing well. She is on provigil 100 mg, 1/2 pill daily, she can retry it to take half a pill twice a day or the whole pill in the morning. Side effects reviewed. 2. She will continue Kesimpta once a month injection. Side effects reviewed. 3. She will continue to have her CBC, AST and ALT check. I reviewed the liver enzymes may fluctuate. 4. I will obtain a brain, cervical and thoracic MRIs 1 week prior to her next appointmen [email or web address] [place] pals y of right side of face [id number] 8714363 G51.0 I discussed with the patient regarding her condition. I reviewed the history and the neuro exam. She had right lawrence's palsy, improved by at least 80 %. This is not related to her MS. She is able to close her right eye. I reviewed the massage therapy and electrical stimulatio n to improve recovery. The recovery is not predictabl e, but the majority of patients may improve by 70%, but some patient may improve more and few will not at all. I reviewed that maximum improvemen t may take a year. Chronic in tractable migraine without aura [id number] 80718 G43.711 I discussed with the patient regarding her condition. She has a chronic migraine headaches. She is having more headaches recently due to weather change. I discussed medication adjustment . She did not want to make any changes. Will continue baclofen 20 mg 1/2 pill once a day. She feels taking it once a day helped with the daily fatigabili ty. Depressive disorder 4059 900 F32.A I discussed with the patient regarding her condition. I reviewed seasonal depression and dysthymia during the wintertime . She did have more stress. She is doing better at this time. No suicidal thoughts. She is on Cymbalta. She will follow-up with her primary care provider for further recommenda tion if needed. Paresthesia 63591028 R20 .2 I discussed the left side of her chest. She is doing very well. This is resolved. Possibly musculoske letal of nonspecifi c. I do not think it is related to MS. Health Concerns Section Related Observation LastModified by Organization Detai ls LastModified Time None Recorded Concern Status LastModified by Organization Details LastModified Time None Recorded Advance Directives Directive None Recorded Payers Insurance Date Sequence Insurance Name Policy Number Policy Dale Covered Member ID Dale Member ID Guarantor Name 03/03/2025 1 [employer] [id number] Priscilla Metcalf [id number] Priscilla David Tea Notes Date Note Type Note Provider Name and Address Organization Details Recorded Time 05/27/2024 text/html I saw Mrs. Metcalf in my office today. I reviewed her previous and recent records. I reviewed our multiple phone communications. I reviewed her recent brain and cervical MRIs. The patient called April 08 because of having all facial numbness and tingling. That day she saw her primary care doctor for pain in her ear and the examination was normal. I recommended to start IV Solu-Medrol 1000 mg daily for 3 days, and also to obtain a brain and cervical MRIs with and without contrast. The patient wanted to hold on the MRIs. She called on April 14 because of having numbness on the right side of the face with the swelling, drooling from the mouth. She went to the ER the night before, and so there may be a tick bite, she was not treated for that. She was given acyclovir. When she called on April 14 she agreed to proceed with the MRIs, in addition she started the IV Solu-Medrol 1000 mg daily for 3 days. The patient cervical MRI was negative for MS. Her brain MRI showed stable MS, no new or active lesions. The patient also had a blood test showed normal white blood cell count, hemoglobin, platelets and absolute lymphocyte count. Her AST and ALT were slightly elevated. Apparently the patient had right facial weakness and was diagnosed with right Lawrence's palsy. She has difficulty closing her right eye, she has facial droop on the right, she had change in the taste of food in her mouth. The pain behind her ear resolved. She denied any skin rash, no scalp tenderness, no febrile feeling. She had been using eyedrops frequently, in addition to lubricant eye drop. She denied eye pain, no blurred vision at this time. She has been doing some massage therapy and electrical stimulation. She denied difficulty swallowing. No right or left side weakness or numbness. Around that time she developed some tiredness, fatigability, she developed nausea and some vomiting. She stopped her medications specially the baclofen. She was having more headaches, not migraines. She went back on the baclofen about 2 weeks ago. She adjusted the dose gradually. She is on baclofen 20 mg, half a pill twice a day. Her fatigability is better with the Provigil. She is on 100 mg. If she takes the whole pill she has difficulty sleeping at night. She has been taking a half a pill in the morning, and this works for her for few hours. She feels fair at this time. She is currently on Cymbalta for depression. She follows with a counselor. No numbness, no blurred or double vision, no slurred speech, no balance problem. She had had some sharp pain around her left side of the chest at the front, which is better. She denied any skin rash. She had chickenpox when she was young. I reviewed her current medications and review of systems. (( She failed Topamax for her mirgaines ))(( She tried Copaxon, Tecfidera, Plegridy ))(( She had about 3-4 days of the week with headaches, starts in the back of her head. She feels some tightness in her shoulder blades. The headaches can last 24 hours, 5-8/10 )). Joyce Alonzo MD [address], [address], [place], [address], [place] [facility] [place] [facility] [place] 05/27/2024 14:04:21 08/23/2024 text/html I saw Mrs. Metcalf in my office today. I reviewed her previous and recent records. I reviewed her WBC, Hb, platelets, ABS lymphocytes, AST and ALT from Jul 2024 were normal. She reported her right side weakness is much better. She had therapy, massage and electrical stimulation. She used eye drops. She denied visual changes, no blurred vision. She denied difficulty swallowing. No right or left side weakness or numbness. She denied tiredness or fatigability, she is on Provigil 100 mg. If she takes the whole pill she has difficulty sleeping at night. She has been taking a half a pill in the morning, and this works for her for few hours. Her headaches doing much better. She is less stressed. She is on baclofen 20 mg, half a pill twice a day. No side effects reported. She feels fair at this time. She is currently on Cymbalta for depression. She follows with a counselor. No numbness, no blurred or double vision, no slurred speech, no balance problem. She had had some sharp pain around her left side of the chest at the front, which is better. She denied any skin rash. She is on Vumeriti, no side effects. No blurred vision, no bladder or bowel problem. She asked about MS medications and wanted to change her medication. She had chickenpox when she was young. I reviewed her current medications and review of systems. (( She failed Topamax for her mirgaines ))(( She tried Copaxone, Tecfidera, Plegridy ))(( She had about 3-4 days of the week with headaches, starts in the back of her head. She feels some tightness in her shoulder blades. The headaches can last 24 hours, 5-8/10 )). Joyce Alonzo MD [address], [address], [facility] [place], [address], [place] [facility] 08/23/[facility]24 21:12:35 03/06/2025 text/html I saw Mrs. Metcalf in my office today. I reviewed her previous and recent records. I reviewed our phone communications. I reviewed her AST and ALT from Oct 2024 were normal. Since the last appointment we switch her MS medication to Kesimpta, she requested the change. Since called due to possible side effects from Kesimpta, having excessive sweating. She did report having hormonal changes and the possible the cause. She continued the medication and feeling better, still a lot of sweating. She called also because she was feeling depressed during the cold weather, she was staying at home a lot. And we discussed depressed mood in the fall and winter and some people, seasonal depression or seasonal dysthymia. She was already on Cymbalta. She continued. I recommended to contact her primary care provider but she did not do that. Her right facial weakness improved a lot. She continued to do exercises, she did the electrical stimulation which helped her a lot. She did use the dry needling which helped her with the facial pain. She cannot close her eye without any problem. She notices occasionally if she is using a straw drinking something, her right may close on her. She denied visual changes, no blurred vision. She denied difficulty swallowing. No right or left side weakness or numbness. She denied tiredness or fatigability at this time. It is better. She tried to change the way she is taking her medication. She is taking the baclofen 20 mg at bedtime only, which helped with the daytime tiredness and fatigability. She is on Provigil 100 mg. If she takes the whole pill she has difficulty sleeping at night. She has been taking a half a pill in the morning, and this works for her for few hours. She reported having more headaches recently due to sinus a problem. She feels fair at this time. She is currently on Cymbalta for depression. She follows with a counselor. No numbness, no blurred or double vision, no slurred speech, no balance problem. She had had some sharp pain around her left side of the chest at the front, which is better. She is on Kesimpta, no side effects. No blurred vision, no bladder or bowel problem. She asked about MS medications and wanted to change her medication. She had chickenpox when she was young. I reviewed her current medications and review of systems. (( She failed Topamax for her mirgaines ))(( She tried Copaxone, Tecfidera, Plegridy ))(( She had about 3-4 days of the week with headaches, starts in the back of her head. She feels some tightness in her shoulder blades. The headaches can last 24 hours, 5-8/10 )). Joyce Alonzo MD [address], [place], [address], [place] [facility] [place] 03/06/2025 10:15:18 OBGyn Episode No OBEpisode recorded.
--- NOTE | 2025-05-26 21:14 | PC.NURSE ---
40yo F to ER with laceration to 2nd toe of R foot and laceration to top of R foot. Patient went to kick a ball and her foot ended up in her sister's dogs mouth. Dog UTD on shots. Patient reports last tDap in 2019. Bleeding controlled. Lac around 1730 tonight. Of note, patient currently taking cipro and flagyl r/t colitis. Wound cleaned with saline. Wet to dry dressing applied. 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 Pt A&Ox4, speech clear. RR even and unlabored. Patient with extremity elevated. Call light in reach. Lac tray to bedside.
--- NOTE | 2025-05-26 21:32 | ED.GENADULT ---
HPI - General Adult General Chief complaint: Wound/Laceration Stated complaint: R foot lac Time Seen by Provider: 05/26/25 20:40 History of Present Illness HPI narrative: This is a pleasant 40-year-old female presenting ED with a foot laceration. She was kicking a ball for her dog when the dog jumped for the ball as she kicked it and she kicked the dog in the mouth sustaining a laceration between her 1st and 2nd toe on her right foot. Dog is up-to-date on her shots. Tdap is up-to-date. She has pain in her 2nd 3rd and 4th toe as well. Patient has history of MS and is on Kesimpta which is an immunomodulator. She is also currently on Cipro and Flagyl for colitis. Related Data Allergies Allergy/AdvReac Type Severity Reaction Status Date / Time cefaclor (From [facility]) Allergy Unknown Verified 05/26/25 18:27 Exam Narrative: APPEARANCE: No apparent distress. Head: atraumatic. EYES: EOMI, NOSE: Atraumatic NECK: Trachea midline RESPIRATORY: No increased rate of breathing CARDIOVASCULAR: RRR, ABDOMINAL: Non-distended MUSCULOSKELETAl: No obvious deformities NEURO: Alert. Moving 4/4 extremities SKIN:: 2 cm laceration on dorsum of the foot just proximal to the 1st and 2nd toe. No involvement of deeper structures. Small superficial 1 cm stellate laceration over the dorsum of the 2nd toe. PSYCHIATRIC: Normal affect Course Vital Signs Vital signs: Vital Signs Temperature 97.9 F 05/26/25 18:23 Pulse Rate 115 H 05/26/25 18:23 Respiratory Rate 16 05/26/25 18:23 Blood Pressure 137/96 H 05/26/25 18:23 Pulse Oximetry 99 05/26/25 18:23 Oxygen Delivery Room Air 05/26/25 18:23 Temperature 97.9 F 05/26/25 18:23 Pulse Rate 105 H 05/26/25 20:39 Respiratory Rate 18 05/26/25 20:39 Blood Pressure 142/108 H 05/26/25 20:39 Pulse Oximetry 96 05/26/25 20:39 Oxygen Delivery Room Air 05/26/25 18:23 Medical Decision Making [facility] Narrative Medical decision making narrative: -Course: 40-year-old female presenting with a laceration or foot after accidentally kicking her dog in the mouth. Wound was irrigated with copious amounts of clean water. Wound was explored with no foreign bodies noted. X-ray shows a fracture of the distal proximal phalanx which corresponds with the laceration over her 2nd toe. This is concerning for open fracture and joint involvement. Dr. Dobbs was consulted. He will take the patient for a washout in the morning. Patient started on ampicillin sulbactam. Will be admitted to the hospital service. NPO at midnight. -DDX includes but is not limited to: Dog bite, bony injury, soft tissue injury -Co-morbidities complicating care: MS Vital Signs Vital Signs: Vital Signs Temperature 97.9 F 05/26/25 18:23 Pulse Rate 115 H 05/26/25 18:23 Respiratory Rate 16 05/26/25 18:23 Blood Pressure 137/96 H 05/26/25 18:23 Pulse Oximetry 99 05/26/25 18:23 Oxygen Delivery Room Air 05/26/25 18:23 Temperature 97.9 F 05/26/25 18:23 Pulse Rate 105 H 05/26/25 20:39 Respiratory Rate 18 05/26/25 20:39 Blood Pressure 142/108 H 05/26/25 20:39 Pulse Oximetry 96 05/26/25 20:39 Oxygen Delivery Room Air 05/26/25 18:23 Discharge Plan Discharge Clinical Impression: Dog bite Patient Disposition: Home Condition: Stable Instructions: Antibiotic Form, Animal Bite (ED) Patient Language: Norwegian Prescriptions: New amoxicillin-pot clavulanate 875-125 mg tablet 1 tablet PO Q12H Qty: 20 0RF Follow-up/Referrals: Ryland Renner Jr., ELIU [Physician] - 1 Week (Toe fracture ) PHYSICIAN NOT ON STAFF,NONSTAFF [Primary Care Provider] -
--- NOTE | 2025-05-26 22:16 | PC.NURSE ---
at bedside for lac repair
--- NOTE | 2025-05-26 22:38 | ECG_ITS ---
Test Date: 2025-05-26 23:01:52 Measurements Intervals Artie Rate: 72 P: 8 WI: 164 QRS: -4 QRSD: 95 T: -9 QT: 393 QTc: 432 Interpretive Statements SINUS RHYTHM Electronically Signed On 05-27-2025 08:13:51 CDT by Hari Jessica D.O
[2025-05-26] MEDS: AMPICILLIN SODIUM/SULBACTAM 3 GM in SODIUM CHLORIDE 0.9% IV 100 ML 200 ML IVPB (23:04)
[2025-05-26 23:09] VITALS: BP 119/84; PULSE 86; RESP 18; O2SAT 98
[2025-05-26 23:12] LABS: Hematocrit 36.3 % (37.0-47.0); Hemoglobin 12.5 g/dL (12.0-15.0); Immature Granulocyte Percent A 0.4 % (0-0.5); Lymphocytes Absolute Auto 1.69 K/mm3 (0.9-3.2); Mean Corpuscular HGB Conc 34.4 g/dl (32-36); Mean Corpuscular Hemoglobin 31.0 pg (26-34); Mean Corpuscular Volume 90.1 fl (80-100); Nucleated Red Blood Cells Absolute Auto 0.000 K/mm3 (0.0-0.012); Nucleated Red Blood Cells Perc 0.0 % (0.0-0.2); Platelet Count Result 318 k/mm3 (150-375); Red Blood Count 4.03 M/mm3 (4.2-5.4); White Blood Count 6.9 K/mm3 (4.5-10.0)
[2025-05-26 23:21] VITALS: BMI 37.5
[2025-05-26 23:23] LABS: Alanine Aminotransferase 77 U/L (6-35); Albumin Level 4.2 g/dL (3.5-5.1); Alkaline Phosphatase 94 U/L (38-126); Anion Gap 9 mmol/L (4-12); Aspartate Amino Transferase 96 U/L (14-36); Bilirubin,Total 0.5 mg/dL (0.2-1.3); Blood Urea Nitrogen 6 mg/dL (7-17); Calcium 9.0 mg/dL (8.4-10.2); Carbon Dioxide 22 mmol/L (22-30); Chloride 105 mmol/L (98-107); Estimated CRCL calculation 104 ml/min; Estimated Glomerular Filt Rate > 60; Glucose 116 mg/dL (65-110); Potassium 3.5 mmol/L (3.4-5.0); Sodium 136 mmol/L (137-145); Total Protein 7.0 g/dL (6.3-8.2)
--- NOTE | 2025-05-26 23:36 | ADMGEN ---
This patient, Priscilla Metcalf, was admitted to Medical Room 347-01. Patient/family oriented to hospital policies and general routines including ID bracelet, bed and alarms, visiting hours, pain management, procedures, bathroom and other care routines, personal items, smoking policy, room service/diet, and visiting hours. Information on how to activate the Rapid Response Team has been discussed. Patient/Family are encouraged to report perceived risks to care and to ask questions if they do not understand what they are told or what they should do.
[2025-05-27] VITALS (7 sets, daily range): BP systolic 123–141; BP diastolic 82–98; PULSE 65–81; RESP 12–20; TEMP 36.5–36.8; O2SAT 96–100
[2025-05-27] MEDS: LACTATED RINGERS 1,000 ML 75 ML IV CONT (01:05)
--- NOTE | 2025-05-27 02:55 | P.HP_ITS ---
H&P: HPI History of Present Illness Date/Time: 05/27/25 00:00 Chief Complaint: Right foot wound. Narrative: This is a 40-year-old female with history of seizures, multiple sclerosis on Kesimpta, hypertension, gastroesophageal reflux disease, Elena esophagus, and depression who presented to the emergency department via private vehicle for evaluation of a right foot wound. While attempting to kick a ball for her dog to tad, the dog jumped in excitement and the patient ended up kicking the dog in the mouth. The dogs canine left a laceration between her 1st and 2nd toe on the right foot. She is having discomfort at the site of the laceration and also complains of pain at the base of the 2nd toe with weight-bearing. The dog is up-to-date on vaccinations and the patient's Tdap is also up-to-date. Of note, she has been on metronidazole and ciprofloxacin for the last 1 week for presumed colitis after developing significant diarrhea which has since improved. In the ED: She was afebrile on arrival with stable vital signs. Labs were pretty unremarkable however AST and ALT were a bit elevated. Right foot x-ray showed a lucency in the distal metaphysis of the proximal phalanx of the 2nd toe which may be a fracture. The wound was clean and she was started on ampicillin/sulbactam. She is being admitted in this setting for further antibiotics and orthopedic consultation with plans to go to the OR later this morning for washout due to concerns for open fracture. Review of Systems Review of Systems: 12 systems were reviewed and are negativ e except for as per HPI. [facility] Past Medical History Medical History (Updated 05/27/25 @ 03:40 by Hilda Womack PA-C) Depression Gastroesophageal reflux disease Elena esophagus Hypertension Relapsing remitting multiple sclerosis Lawrence palsy Seizure disorder Surgical History Surgical History (Updated 05/27/25 @ 03:37 by Hilda Womack PA-C) History of tubal ligation History of endometrial ablation History of cholecystectomy Family History Family History Father Hypertension Mother Hypertension Sibling Hypertension Social History Social History (Updated 05/27/25 @ 03:38 by Hilda Womack PA-C) Social History: Surrogate medical decision maker: Zenon Metcalf, spouse or sierra Wadsworth. Code status: Full code. Smoking status: Never smoker Alcohol intake: never Substance use: never Do You Feel Safe in your Home?: Yes Lack of Transportation: No Lack of Food: Never True Current Housing: I Have Housing Concerned About Future Housing: No Difficulty Paying Gas/Electric Bills: No Difficulty Paying for Meds: No Currently Unemployed: No Education: High School Diploma/GED Difficulty w/ Childcare or Family Care: No Spiritual care concerns: No Meds Home Medications and Allergies Home Medications ?Medication ?Instructions ?Recorded ?Confirmed ?Type amoxicillin 875 mg-potassium 1 tablet PO Q12H #20 tabs 05/26/25 Rx clavulanate 125 mg tablet baclofen 20 mg tablet 20 mg PO HS 05/26/25 05/26/25 History cariprazine 1.5 mg capsule 1.5 mg PO Q24H 05/26/25 05/26/25 History (Vraylar) ciprofloxacin HCl 500 mg tablet 500 mg PO Q12H 05/26/25 05/26/25 History duloxetine 30 mg capsule,delayed 30 mg PO Q12H 05/26/25 05/26/25 History release ipratropium bromide 42 mcg (0.06 2 spray intranasal QID PRN 05/26/25 05/26/25 History %) nasal spray allergic symptoms lisinopril 10 mg tablet 10 mg PO Q12H 05/26/25 05/27/25 History lisdexamfetamine 20 mg capsule 20 mg PO DAILY 05/27/25 05/27/25 History loperamide 2 mg capsule 2 mg PO QID PRN loose stool 05/27/25 05/27/25 History metoprolol succinate 25 mg 25 mg PO HS 05/27/25 05/27/25 History tablet,extended release 24 hr metronidazole 500 mg tablet 500 mg PO Q8H 05/27/25 05/27/25 History ofatumumab 20 mg/0.4 mL 0.4 mg subcut MONTHLY 05/27/25 05/27/25 History subcutaneous pen injector (Kesimpta Pen) pantoprazole 40 mg tablet,delayed 40 mg PO DAILY 05/27/25 05/27/25 History release Allergies Allergy/AdvReac Type Severity Reaction Status Date / Time cefaclor (From [facility]) Allergy Unknown Verified 05/26/25 18:27 Vital Signs Vital Signs - 24 hr 05/26/25 18:23 05/26/25 20:39 05/26/25 23:09 Temperature 97.9 F Pulse Rate 115 H 105 H 86 Respiratory Rate 16 18 18 Blood Pressure 137/96 H 142/108 H 119/84 Pulse Oximetry 99 96 98 Oxygen Delivery Room Air 05/26/25 23:21 05/27/25 01:48 Temperature 97.8 F Pulse Rate 80 Respiratory Rate 20 Blood Pressure 138/89 Pulse Oximetry 99 Oxygen Delivery Room Air Exam Narrative: General: Nontoxic-appearing female sitting up in bed in no distress. Weight: 99.2 kg. BMI: 37.5. HEENT: PERRL, EOMI. Sclera anicteric. Oral mucosa moist. Neck: Supple. Respiratory: Lungs are clear to auscultation bilaterally. Cardiovascular: Regular rate and rhythm with S1-S2. Gastrointestinal: Abdomen is soft with positive bowel sounds. Skin: Warm and dry. There is an approximately 2 cm laceration of the dorsum of the foot just proximal to the 1st and 2nd toe with some bruising. Extremities: No cyanosis, clubbing, or edema. Radial and pedal pulses intact. Neurological: Alert. Cranial nerves grossly intact. No gross focal deficits to casual conversation. Psychiatric: Pleasant and cooperative with normal mood and affect. Judgment and insight intact. H&P: Results Labs Labs: Short CBC 05/26/25 Range/Units 22:57 WBC 6.9 (4.5-10.0) K/mm3 Hgb 12.5 (12.0-15.0) g/dL Hct 36.3 L (37.0-47.0) % Plt Count 318 (150-375) k/mm3 [facility] 05/26/25 22:57 Sodium 136 L Potassium 3.5 Chloride 105 Carbon Dioxide 22 BUN 6 L Creatinine 0.72 Glucose 116 H Calcium 9.0 Liver Function 05/26/25 Range/Units 22:57 Total Bilirubin 0.5 (0.2-1.3) mg/dL AST 96 H (14-36) U/L ALT 77 H (6-35) U/L Alkaline Phosphatase 94 (38-126) U/L Albumin 4.2 (3.5-5.1) g/dL Impressions Foot X-Ray 05/26/25 22:07 IMPRESSION: Lucency in the distal metaphysis of the proximal phalanx of the second toe which may be a fracture. Follow-up advised. Polyarticular osteoarthritic changes. Chest X-Ray 05/26/25 22:56 IMPRESSION: No acute cardiopulmonary pathology. Assessment and Plan Assessment and plan (1) Dog bite of dorsum of foot: Code(s): S91.359A - Open bite, unspecified foot, initial encounter; W54.0XXA - Bitten by dog, initial encounter Status: Acute (2) Open fracture of second toe of right foot: Code(s): S92.501B - Displaced unspecified fracture of right lesser toe(s), initial encounter for open fracture Status: Acute (3) Hypertension: Code(s): I10 - Essential (primary) hypertension Status: Acute (4) Relapsing remitting multiple sclerosis: Code(s): G35 - Multiple sclerosis Status: Acute (5) Seizure disorder: Code(s): G40.909 - Epilepsy, unspecified, not intractable, without status epilepticus Status: Acute (6) Elena esophagus: Code(s): K22.70 - 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 Status: Acute (7) Gastroesophageal reflux disease: Code(s): K21.9 - Gastro-esophageal reflux disease without esophagitis Status: Acute (8) Depression: Code(s): F32.A - Depression, unspecified Status: Acute Plan The patient presented to the emergency department for evaluation of a laceration on the dorsum of the right foot as well as pain in the right 2nd toe after an accidental dog bite as detailed in HPI. Labs, imaging, EKG, and all reports were personally reviewed. X-ray in the emergency department showed findings of possible fracture of the proximal right 2nd toe at the site of the laceration concerning for possible open fracture. She has been started on Unasyn and will be NPO for possible washout in the OR tomorrow per Orthopedic surgery. Analgesics are available as needed. Patient states that the dog is up-to-date on vaccinations in that she is up-to-date on her Tdap. Blood pressures were reviewed and they are stable. Chronic medical conditions without acute issues include multiple sclerosis, seizure disorder, Elena esophagus, gastroesophageal reflux disease, and depression. Her home medications will be reviewed and resumed as appropriate. Findings and treatment plan were discussed with the patient. Questions were solicited and answered to satisfaction. The patient's medical management will be taken over by the hospitalist team in a.m. Quality VTE Prophylaxis VTE prophylaxis: mechanical ordered If No VTE Prophylaxis Answer both mechanical and pharmacologic: Reason no pharmacologic proph: medical contraindication (OR later today) Hospitalist MIPS Advance Care Plan I have confirmed that the patient's Advanced Care Plan is present, code status is documented, or surrogate decision maker is listed in patient medical record.: Yes Medication Reconciliation I have utilized all available resources to obtain, update and review the patients current medications (includes all prescriptions, OTC, herbals, cannabis, and nutritional supplements).: Yes
[2025-05-27] MEDS: ONDANSETRON INJ 4 MG/2 ML VIAL IV PUSH (06:32)
[2025-05-27] MEDS: AMPICILLIN SODIUM/SULBACTAM 3 GM in SODIUM CHLORIDE 0.9% IV 100 ML 200 ML IVPB ×2 (06:50→12:25)
[2025-05-27 07:03] LABS: Hematocrit 34.4 % (37.0-47.0); Hemoglobin 11.4 g/dL (12.0-15.0); Mean Corpuscular HGB Conc 33.1 g/dl (32-36); Mean Corpuscular Hemoglobin 30.7 pg (26-34); Mean Corpuscular Volume 92.7 fl (80-100); Platelet Count Result 290 k/mm3 (150-375); Red Blood Count 3.71 M/mm3 (4.2-5.4); White Blood Count 5.4 K/mm3 (4.5-10.0)
[2025-05-27 07:24] LABS: Alanine Aminotransferase 65 U/L (6-35); Albumin Level 3.7 g/dL (3.5-5.1); Alkaline Phosphatase 94 U/L (38-126); Anion Gap 7 mmol/L (4-12); Aspartate Amino Transferase 57 U/L (14-36); Bilirubin,Total 0.3 mg/dL (0.2-1.3); Blood Urea Nitrogen 8 mg/dL (7-17); Calcium 8.7 mg/dL (8.4-10.2); Carbon Dioxide 25 mmol/L (22-30); Chloride 105 mmol/L (98-107); Estimated CRCL calculation 117 ml/min; Estimated Glomerular Filt Rate > 60; Glucose 89 mg/dL (65-110); Potassium 3.4 mmol/L (3.4-5.0); Sodium 137 mmol/L (137-145); Total Protein 6.2 g/dL (6.3-8.2)
[2025-05-27] MEDS: HYDROcodone/acetaminophen (*CRX) 5-325 MG TABLET 1 TAB PO ×2 (07:54→11:53)
[2025-05-27] MEDS: PANTOPRAZOLE 40 MG TABLET PO (09:00)
--- NOTE | 2025-05-27 09:47 | PM.IMHP ---
H&P: HPI History of Present Illness Date/Time: 05/27/25 09:47 Chief Complaint: Right foot dog bite injury to the 2nd toe Narrative: Patient is a 40-year-old female who is visiting from [facility] with her sister in adults of [facility]. She was playing with her sisters dementia per who is fully vaccinated by report and her foot out playfully trying to kick a toy but instead her foot went into the [place] shepherds mouth. PMFSH Past Medical History Medical History (Updated 05/27/25 @ 03:40 by Hilda Womack PA-C) Depression Gastroesophageal reflux disease Elena esophagus Hypertension Relapsing remitting multiple sclerosis Lawrence palsy Seizure disorder Surgical History Surgical History (Updated 05/27/25 @ 03:37 by Hilda Womack PA-C) History of tubal ligation History of endometrial ablation History of cholecystectomy Family History Family History Father Hypertension Mother Hypertension Sibling Hypertension Social History Social History (Updated 05/27/25 @ 03:38 by Hilda Womack PA-C) Social History: Surrogate medical decision maker: Zenon Metcalf, spouse or Palak Hopkins, sibling. Code status: Full code. Smoking status: Never smoker Alcohol intake: never Substance use: never Do You Feel Safe in your Home?: Yes Lack of Transportation: No Lack of Food: Never True Current Housing: I Have Housing Concerned About Future Housing: No Difficulty Paying Gas/Electric Bills: No Difficulty Paying for Meds: No Currently Unemployed: No Education: High School Diploma/GED Difficulty w/ Childcare or Family Care: No Spiritual care concerns: No Meds Home Medications and Allergies Home Medications ?Medication ?Instructions ?Recorded ?Confirmed ?Type amoxicillin 875 mg-potassium 1 tablet PO Q12H #20 tabs 05/26/25 Rx clavulanate 125 mg tablet baclofen 20 mg tablet 20 mg PO HS 05/26/25 05/26/25 History cariprazine 1.5 mg capsule 1.5 mg PO Q24H 05/26/25 05/26/25 History (Vraylar) ciprofloxacin HCl 500 mg tablet 500 mg PO Q12H 05/26/25 05/26/25 History duloxetine 30 mg capsule,delayed 30 mg PO Q12H 05/26/25 05/26/25 History release ipratropium bromide 42 mcg (0.06 2 spray intranasal QID PRN 05/26/25 05/26/25 History %) nasal spray allergic symptoms lisinopril 10 mg tablet 10 mg PO Q12H 05/26/25 05/27/25 History lisdexamfetamine 20 mg capsule 20 mg PO DAILY 05/27/25 05/27/25 History loperamide 2 mg capsule 2 mg PO QID PRN loose stool 05/27/25 05/27/25 History metoprolol succinate 25 mg 25 mg PO HS 05/27/25 05/27/25 History tablet,extended release 24 hr metronidazole 500 mg tablet 500 mg PO Q8H 05/27/25 05/27/25 History ofatumumab 20 mg/0.4 mL 0.4 mg subcut MONTHLY 05/27/25 05/27/25 History subcutaneous pen injector (Kesimpta Pen) pantoprazole 40 mg tablet,delayed 40 mg PO DAILY 05/27/25 05/27/25 History release Allergies Allergy/AdvReac Type Severity Reaction Status Date / Time cefaclor (From [facility]) Allergy Unknown Verified 05/26/25 18:27 Vital Signs Vital Signs - 24 hr 05/26/25 18:23 05/26/25 20:39 05/26/25 23:09 Temperature 36.6 C Pulse Rate 115 H 105 H 86 Respiratory Rate 16 18 18 Blood Pressure 137/96 H 142/108 H 119/84 Pulse Oximetry 99 96 98 Oxygen Delivery Room Air 05/26/25 23:21 05/27/25 01:48 05/27/25 06:00 Temperature 36.6 C 36.8 C Pulse Rate 80 75 Respiratory Rate 20 20 Blood Pressure 138/89 141/98 H Pulse Oximetry 99 100 Oxygen Delivery Room Air 05/27/25 07:45 Temperature Pulse Rate Respiratory Rate Blood Pressure Pulse Oximetry Oxygen Delivery Room Air Exam Narrative: On exam of the patient's right foot along with clinical photographs that I received from the emergency room it is apparent that the patient has a fracture of the 2nd toe proximal phalanx at the level of the proximal interphalangeal joint intra-articular. She has a laceration of about 2 cm in length over the 1st web space and also over the PIP of the 2nd toe (1cm laceration). Const: General: cooperative, healthy appearing, comfortable, no acute distress, well developed, alert and awake Nutritional Appearance: average body habitus and well nourished Orientation/consciousness: oriented to person, oriented to place and oriented to time H&P: Results Labs Labs: Short CBC 05/26/25 05/27/25 Range/Units 22:57 05:31 WBC 6.9 5.4 (4.5-10.0) K/mm3 Hgb 12.5 11.4 L (12.0-15.0) g/dL Hct 36.3 L 34.4 L (37.0-47.0) % Plt Count 318 290 (150-375) k/mm3 BMP 05/26/25 05/27/25 22:57 05:31 Sodium 136 L 137 Potassium 3.5 3.4 Chloride 105 105 Carbon Dioxide 22 25 BUN 6 L 8 Creatinine 0.72 0.63 L Glucose 116 H 89 Calcium 9.0 8.7 Liver Function 05/26/25 07 Range/Units 22:57 05:31 Total Bilirubin 0.5 0.3 (0.2-1.3) mg/dL AST 96 H 57 H (14-36) U/L ALT 77 H 65 H (6-35) U/L Alkaline Phosphatase 94 94 (38-126) U/L Albumin 4.2 3.7 (3.5-5.1) g/dL Assessment and Plan Assessment and plan (1) Open fracture of second toe of right foot: Code(s): S92.501B - Displaced unspecified fracture of right lesser toe(s), initial encounter for open fracture Status: Acute (2) Dog bite of dorsum of foot: Code(s): S91.359A - Open bite, unspecified foot, initial encounter; W54.0XXA - Bitten by dog, initial encounter Status: Acute Plan Patient is a 40-year-old female with a dog bite injury to the right foot with 2 lacerations 1 over the 1st interspace and the 2nd laceration is over the PIP joint of the 2nd toe it is apparent that this is also the area in the exact spot where she has a intra-articular fracture of the proximal phalanx to the level of the PIP joint. Apparently the [place] dog belongs her sister. And she states that the dog has had all vaccinations. My recommendation would be to perform a formal irrigation and debridement of the 2nd toe right foot PIP joint. The patient is visiting from [facility] which is about [address] [facility]. The plan is to have her follow up in my office before she leaves, her sister also a 2nd sister lives in [facility]. I will see her back sometime next week around Thursday. Then she will be on her way back to [facility] after her 1st visit with me in clinic next week on Thursday. This was discussed with the patient.
--- NOTE | 2025-05-27 09:57 | WPDHPUPDATE1 ---
History and Physical Update Update Date/Time: 05/27/25 09:57 History and Physical has been reviewed, including an updated exam of the patient. There are NO changes in the patient's condition. Risks, benefits, and alternatives have been discussed and questions answered. Patient agrees to proceed with procedure. - Right Foot I&D of 2nd toe.
--- NOTE | 2025-05-27 09:59 | P.PNAN_ITS ---
Anes - Initial Pre Proc Eval Procedure: Operation Date: 05/27/25 11:00 Proposed Procedures p I&D Debride Lower Extremity Foot - Jose Raul Dobbs MD Date/Time: 05/27/25 09:59 Surgeon: Ela Short MD Pre Op Diagnosis: Open fracture/ Dog Bite Patient Data Age: 40 Gender: F Height: 1.63 m Weight: 99.2 kg Last Vital Signs Temp 36.8 C 05/27/25 06:00 Pulse 75 05/27/25 06:00 Resp 20 05/27/25 06:00 BP 141/98 H 05/27/25 06:00 Pulse Ox 100 05/27/25 06:00 O2 Del Method Room Air 05/27/25 07:45 Allergies Allergy/AdvReac Type Severity Reaction Status Date / Time cefaclor (From [facility]) Allergy Unknown Verified 05/26/25 18:27 Home Medications ?Medication ?Instructions ?Recorded ?Confirmed ?Type amoxicillin 875 mg-potassium 1 tablet PO Q12H #20 tabs 05/26/25 Rx clavulanate 125 mg tablet baclofen 20 mg tablet 20 mg PO HS 05/26/25 05/26/25 History cariprazine 1.5 mg capsule 1.5 mg PO Q24H 05/26/25 05/26/25 History (Vraylar) ciprofloxacin HCl 500 mg tablet 500 mg PO Q12H 05/26/25 05/26/25 History duloxetine 30 mg capsule,delayed 30 mg PO Q12H 05/26/25 05/26/25 History release ipratropium bromide 42 mcg (0.06 2 spray intranasal QID PRN 05/26/25 05/26/25 History %) nasal spray allergic symptoms lisinopril 10 mg tablet 10 mg PO Q12H 05/26/25 05/27/25 History lisdexamfetamine 20 mg capsule 20 mg PO DAILY 05/27/25 05/27/25 History loperamide 2 mg capsule 2 mg PO QID PRN loose stool 05/27/25 05/27/25 History metoprolol succinate 25 mg 25 mg PO HS 05/27/25 05/27/25 History tablet,extended release 24 hr metronidazole 500 mg tablet 500 mg PO Q8H 05/27/25 05/27/25 History ofatumumab 20 mg/0.4 mL 0.4 mg subcut MONTHLY 05/27/25 05/27/25 History subcutaneous pen injector (Kesimpta Pen) pantoprazole 40 mg tablet,delayed 40 mg PO DAILY 05/27/25 05/27/25 History release Laboratory Tests 05/26/25 05/27/25 22:57 05:31 WBC 6.9 K/mm3 5.4 K/mm3 (4.5-10.0) (4.5-10.0) RBC 4.03 L M/mm3 3.71 L M/mm3 (4.2-5.4) (4.2-5.4) Hgb 12.5 g/dL 11.4 L g/dL (12.0-15.0) (12.0-15.0) Hct 36.3 L % 34.4 L % (37.0-47.0) (37.0-47.0) MCV 90.1 fl 92.7 fl (80-100) (80-100) MCH 31.0 pg 30.7 pg (26-34) (26-34) MCHC 34.4 g/dl 33.1 g/dl (32-36) (32-36) RDW 13.0 % 13.2 % (11.5-14.5) (11.5-14.5) Plt Count 318 k/mm3 290 k/mm3 (150-375) (150-375) MPV 9.1 fl 9.3 fl (7.4-10.4) (7.4-10.4) Immature Gran % (Auto) 0.4 % (0-0.5) Neut % (Auto) 65.8 % (45.5-73.1) Lymph % (Auto) 24.5 % (18.3-44.2) Dawson % (Auto) 7.4 % (2.6-8.5) Eos % (Auto) 1.2 % (0-4.4) Baso % (Auto) 0.7 % (0.2-1.2) Lymph # (Auto) 1.69 K/mm3 (0.9-3.2) Dawson # (Auto) 0.5 K/mm3 (0.1-0.6) Eos # (Auto) 0.1 K/mm3 (0-0.3) Baso # (Auto) 0.1 K/mm3 (0.0-0.1) Abs Immat Gran (auto) 0.03 K/mm3 (0.00-0.031) Absolute Neuts (auto) 4.6 K/mm3 (1.3-6.7) Absolute Nucleated RBC 0.000 K/mm3 (0.0-0.012) Nucleated RBC % 0.0 % (0.0-0.2) Sodium 136 L mmol/L 137 mmol/L (137-145) (137-145) Potassium 3.5 mmol/L 3.4 mmol/L (3.4-5.0) (3.4-5.0) Chloride 105 mmol/L 105 mmol/L (98-107) (98-107) Carbon Dioxide 22 mmol/L 25 mmol/L (22-30) (22-30) Anion Gap 9 mmol/L 7 mmol/L (4-12) (4-12) BUN 6 L mg/dL 8 mg/dL (7-17) (7-17) Creatinine 0.72 mg/dL 0.63 L mg/dL (0.7-1.0) (0.7-1.0) Estim Creat Clear Calc 104 ml/min 117 ml/min Estimated GFR > 60 > 60 (59 - ) (59 - ) Glucose 116 H mg/dL 89 mg/dL (65-110) (65-110) Calcium 9.0 mg/dL 8.7 mg/dL (8.4-10.2) (8.4-10.2) Total Bilirubin 0.5 mg/dL 0.3 mg/dL (0.2-1.3) (0.2-1.3) AST 96 H U/L 57 H U/L (14-36) (14-36) ALT 77 H U/L 65 H U/L (6-35) (6-35) Alkaline Phosphatase 94 U/L 94 U/L (38-126) (38-126) Total Protein 7.0 g/dL 6.2 L g/dL (6.3-8.2) (6.3-8.2) Albumin 4.2 g/dL 3.7 g/dL (3.5-5.1) (3.5-5.1) Patient hx anesthesia problems: none Family hx anesthesia problems: none Results Review: All pre-operative results and documents have been reviewed as part of the pre- operative evaluation. [facility] Past Medical History Medical History Depression Gastroesophageal reflux disease Elena esophagus Hypertension Relapsing remitting multiple sclerosis Lawrence palsy Seizure disorder Surgical History Surgical History History of tubal ligation History of endometrial ablation History of cholecystectomy Family History Family History Father Hypertension Mother Hypertension Sibling Hypertension Social History Social History Social History: Surrogate medical decision maker: Zenon Gillespietheo, spouse or Palak Hopkins, sibling. Code status: Full code. Smoking status: Never smoker Alcohol intake: never Substance use: never Do You Feel Safe in your Home?: Yes Lack of Transportation: No Lack of Food: Never True Current Housing: I Have Housing Concerned About Future Housing: No Difficulty Paying Gas/Electric Bills: No Difficulty Paying for Meds: No Currently Unemployed: No Education: High School Diploma/GED Difficulty w/ Childcare or Family Care: No Spiritual care concerns: No Anes - Eval Final PreProcedure Day of Procedure 05/27/25 09:59 Patient weight: obese Heart: regular rate and rhythm Lungs: clear to auscultation Airway: Mallampati scale class II Neurological: alert and oriented Last oral intake: >/= 8 hours ASA classification: III Emergent: no Anesthetic plan: proceed Anesthesia type and monitoring: general GIVS and standard monitoring Results Review: All pre-operative results and documents have been reviewed as part of the pre- operative evaluation. Informed Consent: The patient's anesthetic plan and its attendant risks and benefits were discussed with the patient/family/POA. Questions were solicited and answers provided to the satisfaction of the patient/family/POA.
--- NOTE | 2025-05-27 10:04 | PC.NURSE ---
Patient went down to OR at 1000.
[2025-05-27] MEDS: LIDOCAINE 1% LOCAL INJ 10 ML VIAL INFILTRATE (10:31)
[2025-05-27] MEDS: LACTATED RINGERS 1,000 ML 30 ML IV CONT (10:50)
--- NOTE | 2025-05-27 11:04 | W.PM.PROC2 ---
Procedure Note - Detailed Date of Procedure 05/27/25 Pre-op Diagnosis 1. Right Foot Dog Bite with laceration 2cm in the 1st Inter-space 2. 2nd Toe Prox Phal intra-articular Fracture at PIP joint (open fx involving the PIP joint) Post-op Diagnosis Same Procedure Performed 1. Irrigation and debridement of Right Foot Dog Bite laceration 2cm in the 1st inter-space 2. Arthrotomy and irrigation and debridement of Right Foot 2nd Toe PIP joint 3. Short Leg posterior splint application Surgeon Jose Raul Dobbs MD Anesthesia Local Indications the patient is a 40-year-old female who presented with a right foot dog bite injury 2 cm involving the 1st interspace as well as a intra-articular involvement of the PIP joint of the 2nd toe with an intra-articular fracture of the proximal phalanx of the same level. Description of Procedure After obtaining consent with regards to the risks benefits alternatives and complications of this procedure, the correct site of surgery was marked in the holding area. The patient was then brought to the operating room placed in supine position which time she underwent a sedation. The right lower extremity was then prepped and draped in standard sterile fashion. Tourniquet was not used for the case. I injected 1% lidocaine without epinephrine into the 1st interspace at the edges of the 2 cm laceration as well as immediately over the PIP joint of the 2nd toe where a 2nd laceration was identified. The 1st laceration with 2 cm was less than 1 cm in a transverse orientation. After the laceration site was adequately anesthetized with 1% lidocaine, I explored the wound 1st over the 1st interspace and noted that there was no involvement of the metacarpophalangeal joint of the great toe or the 2nd toe. This was thoroughly irrigated with a solution containing saline as well as 1 g of Ancef per L saline. I then turned my attention towards the transverse laceration over the PIP joint and extended this proximally and distally in order to expose the PIP joint. I was successful expect exposing the joint and noted that there was not indeed an intra-articular fracture of the proximal phalanx at the level of the PIP joint. I exposed the joint and irrigated thoroughly with a solution of 1 g Ancef per L of saline solution. I then proceeded to close both laceration sites loosely with 3-0 nylon suture. The foot was then bandaged with sterile fashion placed in a posterior splint and she was transferred to the recovery room in stable condition. The patient will be receiving an additional dose of Unasyn IV prior to discharge. Upon discharge the plan is to have patient on Augmentin for 10 days. Patient will also be on aspirin 81 mg twice a day for DVT prophylaxis for 2 weeks. Estimated Blood Loss 10 Drains No Packing No Pathology Yes Complications No immediate complications Condition Stable Disposition PACU
--- NOTE | 2025-05-27 14:13 | PM.DS ---
DS: Admitting Diagnosis Discharge Date 05/27/2025 Admitting Diagnosis Foot wound DS: Discharge Diagnosis Discharge Diagnosis (1) Open fracture of second toe of right foot: Code(s): S92.501B - Displaced unspecified fracture of right lesser toe(s), initial encounter for open fracture Status: Acute (2) Dog bite of dorsum of foot: Code(s): S91.359A - Open bite, unspecified foot, initial encounter; W54.0XXA - Bitten by dog, initial encounter Status: Acute DS: Summary Hospital Course Hospital Course: 40-year-old female with history of seizures multiple sclerosis on Kesimpta, hypertension, GERD, Elena's esophagus, depression prevents to [place] [facility] on 05/26/2025 via private vehicle for the evaluation of a right foot wound. The patient had attempted to kick a ball for her dog to tad and the dog accidentally bit her on the foot. It left a laceration between her 1st and 2nd toe on the right foot. The pain has worsened. The dog is up-to-date on vaccinations and the patient's Tdap is up-to-date. She had been prescribed metronidazole and ciprofloxacin prior for colitis and her diarrhea has resolved. On 05/27/2025 she underwent an irrigation and debridement of right foot laceration in the 1st interdigital space, arthrotomy and irrigation and debridement of right foot 2nd toe PIP joint with a short-leg posterior splint application placed. She is discharged in stable condition on 05/27/2025. She will take Augmentin for another 10 days as prescribed and aspirin 81 mg twice daily for DVT prophylaxis. She has follow-up in 3 days with the performing orthopedic surgeon. She also has follow-up with the wound care clinic. Patient was full code during admission. Time Spent with Patient Time attestation: Total time spent providing and/or coordinating discharge services: Exam Const: General: comfortable and no acute distress HENMT: Mouth: Yes moist mucous membranes Eyes: Pupils: Equal, round and reactive pupils present Neck: Neck: supple Resp: Effort & Inspection: normal respiratory effort Auscultation: clear to auscultation bilaterally Cardio: Rate: regular rate Rhythm: regular rhythm GI: GI Palp: Yes Soft to palpation and No Tenderness to palpation present (GI) Extrem: General: no edema DS: Data Data Completed and Pending Labs on day of discharge: Labs from last 24 hours 05/27/25 05/26/25 05:31 22:57 WBC 5.4 6.9 RBC 3.71 L 4.03 L Hgb 11.4 L 12.5 Hct 34.4 L 36.3 L MCV 92.7 90.1 MCH 30.7 31.0 MCHC 33.1 34.4 RDW 13.2 13.0 Plt Count 290 318 MPV 9.3 9.1 Immature Gran % (Auto) 0.4 Neut % (Auto) 65.8 Lymph % (Auto) 24.5 Robertson % (Auto) 7.4 Eos % (Auto) 1.2 Baso % (Auto) 0.7 Lymph # (Auto) 1.69 Robertson # (Auto) 0.5 Eos # (Auto) 0.1 Baso # (Auto) 0.1 Abs Immat Gran (auto) 0.03 Absolute Neuts (auto) 4.6 Absolute Nucleated RBC 0.000 Nucleated RBC % 0.0 Sodium 137 136 L Potassium 3.4 3.5 Chloride 105 105 Carbon Dioxide 25 22 Anion Gap 7 9 BUN 8 6 L Creatinine 0.63 L 0.72 Estim Creat Clear Calc 117 104 Estimated GFR > 60 > 60 Glucose 89 116 H Calcium 8.7 9.0 Total Bilirubin 0.3 0.5 AST 57 H 96 H ALT 65 H 77 H Alkaline Phosphatase 94 94 Total Protein 6.2 L 7.0 Albumin 3.7 4.2 Discharge Plan Discharge Attending physician on discharge: Amee Alvarez Consulting providers: Jose Raul Dobbs Discharging Clinician: Amee Alvarez Patient Disposition: Home Activity: other - see discharge instructions Diet: regular Discharge Instructions: Do not submerge wound into water. May shower Patient Instructions: Antibiotic Form Patient Language: Cymraes Stand Alone Forms: General Discharge Information Follow-up/Referrals: PHYSICIAN NOT ON STAFF,NONSTAFF [Primary Care Provider] - Jose Raul Dobbs MD [Physician] - Discharge Medications: New amoxicillin-pot clavulanate 875-125 mg tablet 1 tablet PO Q12H Qty: 20 0RF aspirin 81 mg capsule 81 mg PO BID Qty: 30 0RF Continued baclofen 20 mg tablet 20 mg PO HS Vraylar 1.5 mg capsule 1.5 mg PO Q24H duloxetine 30 mg capsule,delayed release(DR/EC) 30 mg PO Q12H ipratropium bromide 42 mcg (0.06 %) spray,non-aerosol 2 spray INTRANASAL QID PRN (Reason: allergic symptoms) lisinopril 10 mg tablet 10 mg PO Q12H loperamide 2 mg capsule 2 mg PO QID PRN (Reason: loose stool) metoprolol succinate 25 mg tablet extended release 24 hr 25 mg PO HS Kesimpta Pen 20 mg/0.4 mL pen injector 0.4 mg SUBCUT MONTHLY Rx Instructions: TAKES ON pantoprazole 40 mg tablet,delayed release (DR/EC) 40 mg PO DAILY lisdexamfetamine 20 mg capsule 20 mg PO DAILY Discontinued ciprofloxacin HCl 500 mg tablet 500 mg PO Q12H metronidazole 500 mg tablet 500 mg PO Q8H Date of admission: 05/26/25 22:43 Primary Care Provider: PHYSICIAN NOT ON STAFF,NONSTAFF Admitting Provider: Ela Short Attending physician on admission: Ela Short Condition: Stable Hospitalist MIPS Heart Failure (Exclusion) Patient has history of Heart Transplant or Left Ventricular Assistive Device?: No IF YES, STOP HERE Heart Failure (Qualifier) Patient has current or prior documentation of LVEF less than or equal to 40%, or mod/servere depressed LVSF?: No IF NO, STOP HERE
--- NOTE | 2025-05-27 15:55 | PCPTNOTE ---
Physical therapist saw patient from 1431 to 1447. Physical therapist went over TTWB RLE with the patient. Patient has a knee scoot to get around with at home and has an ADA accessible home secondary to having a diagnosis of MS. Patient reports no concerns at this time, shows ability to maintain weightbearing status with wheeled walker. Also discussed icing and elevating the RLE, making sure not to ice directly on the skin or fall asleep with ice on.
--- NOTE | 2025-05-28 11:14 | PC.NURSE ---
Patient called requesting her antibiotic prescription be sent via electronic as she never received her paper script. RN called Dr. Alvarez and confirmed that this was okay. Dr. Alvarez was okay with the antibiotic being sent via electronic.
== END 2025-05-27 15:43 | disposition home or self-care (01) | DRG 502 ==
LOC: ANHED 21:37 → ANH3MED 05-27 04:30
PROVIDERS: Orthopaedic Surgery; Physician Assistant; Admitting Provider Internal Medicine; Emergency Provider Emergency Medicine; Visit Provider General Practice
PROC: 3E1U38Z Irrigation of Joints using Irrigating Substance, Percutaneous Approach (ICD-10-PCS; principal; 2025-05-27 11:00)
DX: S92.501B Displaced unspecified fracture of right lesser toe(s), initial encounter for open fracture (principal); S91.351A Open bite, right foot, initial encounter; S91.311A Laceration without foreign body, right foot, initial encounter; S91.114A Laceration without foreign body of right lesser toe(s) without damage to nail, initial encounter; W54.0XXA Bitten by dog, initial encounter; K52.9 Noninfective gastroenteritis and colitis, unspecified; G35 Multiple sclerosis; I10 Essential (primary) hypertension; K21.9 Gastro-esophageal reflux disease without esophagitis; K22.70 Barrett's esophagus without dysplasia; F32.A Depression, unspecified; G40.909 Epilepsy, unspecified, not intractable, without status epilepticus; Z90.49 Acquired absence of other specified parts of digestive tract; E66.9 Obesity, unspecified; Z68.39 Body mass index [BMI] 39.0-39.9, adult
CPT/HCPCS: 36415; 71045; 73630; 80053; 85025; 85027; 87040; 93005; 96365; 99285; A9270; J0295; J0690; J2003; J2405; J2704; J3010; J7120